=== PATIENT | female | born 1970 | race Caucasian/White ===

== ENCOUNTER 2018-06-23 11:37 | Emergency (ER) | payer SELFPAY ==
--- NOTE | 2018-06-23 12:32 | ER ---
Nurse's Notes [facility] Name: Parul Rodriguez Age: 48 yrs Sex: Female : 1970 Arrival Date: 06/23/2018 Time: 11:40 Bed 12 Private MD: None, None Diagnosis: Zoster [herpes zoster] Presentation: 06/23 11:41 Presenting complaint: Patient states: a week ago, my back was hurting and applied hj salonpas and now i noticed rash on my abdomen; it is painful; reports chills;. Transition of care: patient was not received from another setting of care. Onset of symptoms was June 23, 2018. Risk Assessment: Do you want to hurt yourself or someone else? Patient reports no desire to harm self or others. Initial Sepsis Screen: Does the patient meet any 2 criteria? No. Patient's initial sepsis screen is negative. Does the patient have a suspected source of infection? No. Patient's initial sepsis screen is negative. Care prior to arrival: None. 11:41 Method Of Arrival: Ambulatory 11:41 Acuity: YOVANI 4 hj Triage Assessment: 11:45 General: Appears in no apparent distress. uncomfortable, Behavior is calm, cooperative, hj appropriate for age. Pain: Complains of pain in abdomen. 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 - Social history:: Smoking status: Patient uses tobacco products, Patient uses alcohol, occasionally. - Ebola Screening: : Patient negative for fever greater than or equal to 101.5 degrees Fahrenheit, and additional compatible Ebola Virus Disease symptoms Patient denies exposure to infectious person Patient denies travel to an Ebola-affected area in the 21 days before illness onset. Screenin:45 Abuse screen: Denies threats or abuse. Denies injuries from another. Nutritional hj screening: No deficits noted. Tuberculosis screening: No symptoms or risk factors identified. Fall Risk None identified. Assessment: 12:39 General: Appears in no apparent distress. Behavior is calm, cooperative. Neuro: Level iw of Consciousness is awake, alert, obeys commands. Respiratory: Respiratory effort is even, unlabored. Musculoskeletal: Range of motion: intact in all extremities. Vital Signs: 11:45 BP 125 / 58; Pulse 78; Resp 18; Temp 97.5(TE); Pulse Ox 96% on R/A; Weight 90.72 kg; hj Height 5 ft. 6 in. (167.64 cm); Pain 6/10; 11:45 Body Mass Index 32.28 (90.72 kg, 167.64 cm) ED Course: 11:40 Patient arrived in ED. mr 11:41 None, None is Private Physician. mr 11:44 Triage completed. hj 11:45 Arm band placed on right wrist. hj 11:46 Patient has correct armband on for positive identification. Bed in low position. Call hj light in reach. Side rails up X 1. 12:11 Alvarez Anderson RN is Primary Nurse. hj 12:12 Timothy Schneider PA is PHCP. cp 12:12 Yousif Louise MD is Attending Physician. cp 12:39 No provider procedures requiring assistance completed. Patient did not have IV access iw during this emergency room visit. Administered Medications: No medications were administered Outcome: 12:31 Discharge ordered by MD. cp 12:39 Discharged to home ambulatory. iw 12:39 Condition: good 12:39 Discharge instructions given to patient, Instructed on discharge instructions, follow up and referral plans. medication usage, Demonstrated understanding of instructions, follow-up care, medications, Prescriptions given X 3. 12:40 Patient left the ED. iw Signatures: Vivian Walter Suze Rodriguez RN RN Alvarez Anderson RN RN Timothy Schneider PA PA cp Corrections: (The following items were deleted from the chart) 11:48 11:45 Pulse 78bpm; Resp 18bpm; Pulse Ox 96% RA; Temp 97.5F Temporal; 90.72 kg; Height 5 hj ft. 6 in.; BMI: 32.2; Pain 6/10; hj 11:49 11:45 Pulse 78bpm; Resp 18bpm; Pulse Ox 96% RA; Temp 97.5F Temporal; 90.72 kg; Height 5 hj ft. 6 in.; BMI: 32.2; Pain 6/10; hj
--- NOTE | 2018-06-23 12:32 | EDPHYS ---
Physician Documentation [facility] Name: Parul Rodriguez Age: 48 yrs Sex: Female : 1970 Arrival Date: 06/23/2018 Time: 11:40 Bed 12 Private MD: None, None ED Physician Yousif Louise HPI: 06/23 12:25 This 48 yrs old Female presents to ER via Ambulatory with complaints of Rash. cp 12:25 The patient's rash thought to be caused by an unknown cause. The rash is located on the cp back and abdomen. The rash can be described as erythematous, papular. Onset: The symptoms/episode began/occurred 1 week(s) ago, and became worse 2 day(s) ago. Associated signs and symptoms: Pertinent positives: burning sensation, Pertinent negatives: fever, itching, swelling of lips, swelling of throat, swelling of tongue. Severity of symptoms: in the emergency department the symptoms are worse. 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 - Social history:: Smoking status: Patient uses tobacco products, Patient uses alcohol, occasionally. - Ebola Screening: : Patient negative for fever greater than or equal to 101.5 degrees Fahrenheit, and additional compatible Ebola Virus Disease symptoms Patient denies exposure to infectious person Patient denies travel to an Ebola-affected area in the 21 days before illness onset. ROS: 12:26 Eyes: Negative for injury, pain, redness, and discharge. cp 12:26 Constitutional: Negative for body aches, chills, fever, poor PO intake. 12:26 Cardiovascular: Negative for chest pain, edema, palpitations. 12:26 Respiratory: Negative for cough, shortness of breath, wheezing. 12:26 Abdomen/GI: Negative for vomiting, diarrhea, constipation. 12:26 Skin: Positive for rash, of the back and abdomen. 12:26 All other systems are negative. Exam: 12:28 Head/Face: Normocephalic, atraumatic. cp 12:28 Constitutional: The patient appears in no acute distress, alert, awake, non-toxic, well developed, well nourished. 12:28 Eyes: Periorbital structures: appear normal, Conjunctiva: normal, no exudate, no injection, Sclera: no appreciated abnormality, Lids and lashes: appear normal, bilaterally. 12:28 ENT: External ear(s): are unremarkable, Nose: is normal, Mouth: Lips: moist, Oral mucosa: moist, Posterior pharynx: Airway: no evidence of obstruction, patent. 12:28 Chest/axilla: Inspection: normal. 12:28 Cardiovascular: Rate: normal. 12:28 Respiratory: the patient does not display signs of respiratory distress, Respirations: normal, no use of accessory muscles, no retractions, no splinting, no tachypnea. 12:28 Skin: rash can be described as erythematous, papular, in dermatome pattern that extends from spine to upper abdomen, on the back and abdomen. Vital Signs: 11:45 BP 125 / 58; Pulse 78; Resp 18; Temp 97.5(TE); Pulse Ox 96% on R/A; Weight 90.72 kg; hj Height 5 ft. 6 in. (167.64 cm); Pain 6/10; 11:45 Body Mass Index 32.28 (90.72 kg, 167.64 cm) hj MDM: 12:12 Patient medically screened. cp 12:15 Differential diagnosis: impetigo, varicella, allergic reaction, herpes zoster. cp 12:30 Data reviewed: vital signs, nurses notes, and as a result, I will discharge patient. cp 12:30 Counseling: I had a detailed discussion with the patient and/or guardian regarding: the cp historical points, exam findings, and any diagnostic results supporting the discharge/admit diagnosis, to return to the emergency department if symptoms worsen or persist or if there are any questions or concerns that arise at home. Administered Medications: No medications were administered Disposition: 13:22 Co-signature as Attending Physician, Yousif Louise MD I agree with the assessment and kdr plan of care. Disposition: 06/23/18 12:31 Discharged to Home. Impression: Zoster [herpes zoster]. - Condition is Stable. - Discharge Instructions: Shingles. - Prescriptions for capsaicin 0.075 % Topical cream - apply 1 application by TOPICAL route 3 times per day As needed apply to area of merry as directed as needed for pain; 60 gram. Tramadol 50 mg Oral Tablet - take 1 tablet by ORAL route every 8 hours as needed; 20 tablet. Acyclovir 800 mg Oral Tablet - take 1 tablet by ORAL route 5 times per day for 10 days; 50 tablet. - Medication Reconciliation Form, Thank You Letter, Antibiotic Education, Prescription Opioid Use form. - Follow up: Private Physician; When: 1 week; Reason: symptoms continue. - Problem is new. - Symptoms are unchanged. Signatures: Yousif Louise MD MD kdr Suze Rodriguez RN RN iw Alvarez Anderson RN RN hj Timothy Schneider PA PA cp Corrections: (The following items were deleted from the chart) 12:40 12:31 06/23/2018 12:31 Discharged to Home. Impression: Zoster [herpes zoster]. iw Condition is Stable. Forms are Medication Reconciliation Form, Thank You Letter, Antibiotic Education, Prescription Opioid Use. Follow up: Private Physician; When: 1 week; Reason: symptoms continue. Problem is new. Symptoms are unchanged. cp
== END 2018-06-23 12:40 | disposition home or self-care (01) ==
LOC: ER 11:37
DX: B02.9 Zoster without complications (principal); Z72.0 Tobacco use
CPT/HCPCS: 99282

== ENCOUNTER 2024-08-14 13:08 | Inpatient (IN) | payer OTHER ==
--- OUTSIDE RECORDS SUMMARY | 2024-08-14 13:10 | XMS REPORT | Continuity of Care Document ---
Author Name Unknown Address [address] [facility] [address] [place] [address] [facility] Address [address] [place] [address] Care Team Providers Care Partnership Manager Name Role Phone Pcp, Patient Does Not Have A Primary Care Physic suleiman Campaigns, Generic Provider Attending Clinician Unavailable Delmi Johnson MD Attending Clinician + Bird Cardenas Attending Clinician [phone] Bird BALLARD Attending Clinician Unavailable Bird BALLARD Attending Clinician Unavailable UNKNOWN, ATTENDING Attending Clinician Unavailab Bird Franco Admitting Clinician Unavailable Payers Payer Name Policy Type Policy Number Effective Date Expirati on Date Source Allergies, Adverse Reactions, Alerts Allergy Name Allergy Type Status Severity Reaction(s) Onset Date Inactive Date Treating Clinician Comments Source NO KNOWN ALLERGIE S Drug Class Active [facility] Social History Social Habit Start Date Stop Date Quantity Comments Source Sexual orientation [facility] Sex assigned at 1970 00:00:00 1970 00:00:00 [facility] Smoking Status Start Date Stop Date Source Tobacco smoking consumption unknown [facility] Medications Ordered Medication Name Filled Medication Name Start Date Stop Date Current Medication? Ordering Clinician Indication Dosage Frequency Signature (SIG) Comments Components Source predniSONE (DELTASONE) tablet 40 mg 03-05 20:15: 00 03-05 20:16 :00 No 40mg 40 mg, Oral, ONCE, 1 dose, On Wed03/05/24 at 1515, ISIDRO [facility] iopamidol (ISOVUE 370-500 mL) injection 90 mL 03-05 17:15: 00 03-05 17:30 :00 No [id number] 90mL 90 mL, Intravenou s, ONCE, 1 dose, On Wed03/05/24 at 1230, Routine [facility] aspirin chewable tablet 324 mg 03-05 16:45: 00 03-05 16:05 :00 No 324mg 324 mg, Oral, ONCE, 1 dose, On Wed03/05/24 at 1145, Routine [facility] magnesium sulfate in water 2 gram/50 mL (4 %) infusion 2 g 03-05 16:30: 00 03-05 17:14 :00 No 2g 2 g, IV Piggyback, Administer over 60 Minutes, ONCE, 1 dose, On Wed03/05/24 at 1130, Routine [facility] methocarbam oL 500 mg tablet 03-05 00:00: 00 Yes [id number] 500mg Take 1 tablet by mouth 4 (four) times daily. [facility] predniSONE 20 mg tablet 03-05 00:00: 00 Yes [id number] 1 PO BID x 4 days [facility] Vital Signs Vital Name Observation Time Observation Value Comments S ource Systolic blood pressure 2024-03-05 19:00:00 170 mm[Hg] [facility] Diastolic blood pressure 2024-03-05 19:00:00 88 mm[Hg] [facility] Heart rate 2024-03-05 19:00:00 91 /min [facility] Respiratory rate 2024-03-05 19:00:00 29 /min [facility] Oxygen saturation in Arterial blood by Pulse oximetry 2024-03-05 19:00:00 96 /min [facility] Body temperature 2024-03-05 15:38:00 36.83 Ksenia [facility] Body height 2024-03-05 15:38:00 165.1 cm [facility] Body weight 2024-03-05 15:38:00 90.719 kg [facility] BMI 2024-03-05 15:38:00 33.28 kg/m2 [facility] Procedures Procedure Date / Time Performed Performing Clinicia n Source INFLUENZA A/B RSV COVID NAAT 2024-03-05 18:37:00 Bird Ballard [facility] URINALYSIS 2024-03-05 16:52:00 Bird Ballard [facility] XR CHEST 2 VW 2024-03-05 16:27:18 Delmi Johnson [facility] TROPONIN I 2024-03-05 16:04:00 Delmi Johnson [facility] COMP. METABOLIC PANEL ([id number]) 2024-03-05 16:04:00 Delmi Johnson [facility] CBC WITH DIFF 2024-03-05 16:04:00 Delmi Johnson [facility] D-DIMER 2024-03-05 16:04:00 [facility] N-TERMINAL PRO-BNP 2024-03-05 16:04:00 Delmi Aponte [facility] HB ECG ROUTINE & RHYTHM STRIP 2024-03-05 15:43:20 Delmi Johnson [facility] Encounters Start Date/Time End Date/Time Encounter Type Admission Type Attending Clinicians Care Facility Care Department Encounter ID Source 2024-03-15 00:00:00 2024-03-15 11:16:01 Letter (Out) Campaigns, Generic Provider Campaigns, Generic Provider [facility] [id number] [facility] 2024-03-05 10:33:00 2024-03-05 15:25:00 Emergency Delmi Johnson K Paige [facility] [id number] [facility] 2024-03-05 10:33:00 2024-03-05 15:25:00 Emergency X NELLIE Bird DELACRUZ [facility] ERT [id number] [facility] 2017-11-15 00:08:03 2017-11-15 00:09:00 Emergency X UNKNOWN, ATTENDING [facility] ERT [id number] [facility] Results Test Description Test Time Test Comments Results Resul t Comments Source XR CHEST 2 VW 2024-03-05 17:30:13 Ordering Physician: DELMI JOHNSON History: SOB Technique: Chest PA and Lateral. Comparison: none Findings: The visible bony thorax is intact. The trachea is midline. The heart sizeis normal. The pulmonary vascular markings are normal. There is no evidenceof gross pulmonary consolidation, pneumothorax, or effusion. [facility]
[2024-08-14] MEDS ORDERED: ONDANSETRON 4 MG/2 ML VIAL ONE (14:56)
[2024-08-14 15:10] LABS: Absolute Basophils 0.1 K/uL (0-0.5); Absolute Eosinophils 0.1 K/uL (0-0.5); Absolute Lymphocytes (CBC) 1.8 K/uL (0.7-4.9); Absolute Monocytes 0.9 K/uL (0.1-1.3); Basophils % 1.1 % (0-1.3); Eosinophils % 0.7 % (0-4.4); Hematocrit 43.3 % (36.0-45.0); Lymphocytes % 14.1 % (15.3-44.8); MCH 31.4 pg (27.0-35.0); MCHC 34.7 g/dL (32.0-36.0); MCV 90.4 fL (80-100); MPV 9.2 fL (7.6-11.3); Monocytes % 6.8 % (3.3-12.3); Neutrophils % 77.3 % (41.7-73.7); Nucleated Red Blood Cells % 0.1 % (0-0); Platelets 285 thou/uL (152-406); RBC Red Blood Cell Count 4.79 M/uL (3.86-4.86); Red Cell Distribution Width 13.5 % (12.1-15.2)
[2024-08-14 15:22] LABS: Specific Gravity 1.005 (1.005-1.030); Sqamous Epithelial <5 /HPF (None Seen); Urine Bacteria <20 /HPF (<20); Urine Bilirubin NEGATIVE (Negative); Urine Blood Trace (Negative); Urine Clarity Extremely Turbid (Clear); Urine Color Light-Yellow (Yellow); Urine Crystals Unidentified Few /HPF (None Seen); Urine Culture Reflex Order NOT NEEDED; Urine Glucose NEGATIVE (Negative); Urine Ketones NEGATIVE (Negative); Urine Microscopic Reflex YN ORDER UMIC; Urine Nitrite NEGATIVE (Negative); Urine Protein NEGATIVE (Negative); Urine RBC <5 /HPF (None Seen); Urine Urobilinogen Normal (Normal); Urine WBC <5 /HPF (<5); Urine WBC Clump Rare /HPF (None Seen); Urine Yeast (Budding) Occasional /HPF (None Seen); Urine pH 5.5 (5.0-7.0)
[2024-08-14 15:28] LABS: Albumin 3.3 g/dL (3.4-5.0); Albumin/Globulin Ratio 0.6 (1.1-1.8); Anion Gap 6.9 mEq/L (5.0-15.0); Bilirubin Total 0.6 mg/dL (0.2-1.0); Globulin 5.1 g/dL (2.3-3.5); Potassium 3.9 mEq/L (3.5-5.1); Protein, Total 8.4 g/dL (6.4-8.2)
--- NOTE | 2024-08-14 16:32 | RAD REPORT ---
EXAMINATION: CT ABDOMEN AND PELVIS WITH CONTRAST CLINICAL INDICATION: Female, 54 years old.ABD PAIN TECHNIQUE: CT abdomen and pelvis was performed, after the administration of IV contrast, as per depar tment protocol. Axial, sagittal and coronal reconstructions were obtained. One or more of the following dose reduction techniques were used: Automated exposure control, adjustment of the mA and/o r kV according to patient size, and/or iterative reconstruction. Unless otherwise specified, incidental findings do not require dedicated imaging follow-up. [id number]. COMPARISON: No prior exam. FINDINGS: LOWER CHEST: No acute process identified.No significant pericardial effusion. Mild circumferential th ickening of the distal esophagus which could reflect esophagitis. UPPER GI: No significant abnormality. LIVER: Hepatic steatosis, but otherwise unremarkable. GALLBLADDER/BILE DUCTS: No biliary ductal dilatation.? PANCREAS: No mass, ductal dilation, or matteo-pancreatic fluid. SPLEEN: Unremarkable. ADRENALS: 2 cm left adrenal nodule. Adrenal Non-Incidental Indeterminate, CT W/C, No prior, > 1 - < 4 cm, < 130 HU: Contrast portal venous phase CT, Non-Incidental Indeterminate Adrenal Mass, No prior imaging, Cancer other than RCC/HCC, No other metastatic disease, > 1 - < 4 cm, < 130 HU: Possib le adenoma or metastasis. Recommend adrenal washout CT, chemical shift MRI or PET/CT (Consider PET/CT when morphological characteristics suggest metastasis). Reference: JACR 2017 Feb;14(8):1038-4 4, JCAT 2016 Sep-Oct;40(2):194-200 KIDNEYS AND URETERS: No hydronephrosis.No suspicious renal mass. ABDOMINAL AORTA AND OTHER VESSELS: Moderate atherosclerotic changes without aortic aneurysm. PERITONEUM: Small fluid collection containing gas along the dome of the bladder measuring 17 x 14 x 2 6 mm. Suspected sinus tract extending from the mid sigmoid to this collection. LYMPH NODES: No pathologic lymphadenopathy. ABDOMINAL WALL: Unremarkable SMALL BOWEL/COLON: Mild inflammatory changes of the sigmoid colon with evidence of diverticulosis. Co ntained perforation with fluid collection along the upper posterior portion of the bladder.No bowel disruption identified. URINARY BLADDER: Wall thickening along the left superior and posterior torre of the bladder. REPRODUCTIVE ORGANS: Uterus surgically absent. No adnexal abnormality. MUSCULOSKELETAL: Multilevel degenerative changes in the spine. No acute fracture. Trace retrolisthesi s of L4 and L5. Grade 1 anterolisthesis of L5 on S1 with bilateral pars defects. ADDITIONAL FINDINGS: None. IMPRESSION: Likely subacute contained perforation secondary to sigmoid diverticulitis. A gas and fluid containing collection is present on the upper portion of the bladder and likely still communicates with the sigmoid. Based on the size and location of the collection, this is not amenable to percutaneous drain age. No evidence to suggest fistula to the bladder though the bladder wall is locally thickened and enhancing from, presumably, inflammation.
--- NOTE | 2024-08-14 16:57 | ER ---
Nurse's Notes [facility] Name: Parul Rodriguez Age: 54 yrs Sex: Female : 1970 Arrival Date: 08/14/2024 Time: 13:08 Bed 27 Private MD: Diagnosis: Sigmoid Diverticulitis with perforation;Lower abdominal pain, unspecified Presentation: 08/14 13:35 Chief complaint: Sharp iIntermittent suprapubic pain, nausea, and pain with urination x hb 2 weeks. Coronavirus screen: At this time, the client does not indicate any symptoms associated with coronavirus-19. Ebola Screen: No symptoms or risks identified at this time. Initial Sepsis Screen: Does the patient meet any 2 criteria? No. Patient's initial sepsis screen is negative. Does the patient have a suspected source of infection? No. Patient's initial sepsis screen is negative. Risk Assessment: Do you want to hurt yourself or someone else? Patient reports no desire to harm self or others. Onset of symptoms was July 31, 2023. 13:35 Method Of Arrival: Ambulatory hb 13:35 Acuity: YOVANI 3 hb Triage Assessment: 13:39 General: Appears in no apparent distress. uncomfortable, Behavior is calm, cooperative. hb Pain: Pain currently is 5 out of 10 on a pain scale. at worst was 8 out of 10 on a pain scale. Neuro: GCS 15. Cardiovascular: Patient's skin is warm and dry. Respiratory: Respiratory effort is even, unlabored, Respiratory pattern is regular, symmetrical. Historical: - Allergies: 08/15 03:52 Dilaudid; Itching; jb4 - Home Meds: 08/14 13:37 None [Active]; hb - PMHx: 13:37 None; hb - PSHx: 13:37 Hysterectomy; Lumpectomy of breast; Appendectomy; hb - Immunization history:: Adult Immunizations up to date. - Infectious Disease History:: Denies. - Social history:: Smoking status: Patient reports the use of cigarette tobacco products. Screenin:50 [facility] ED Fall Risk Assessment (Adult) History of falling in the last 3 months, aa5 including since admission No falls in past 3 months (0 pts) Confusion or Disorientation No (0 pts) Intoxicated or Sedated No (0 pts) Impaired Gait No (0 pts) Mobility Assist Device Used No (0 pt) Altered Elimination No (0 pt) Score/Fall Risk Level 0 - 2 = Low Risk Oriented to surroundings, Maintained a safe environment, Educated pt \T\ family on fall prevention, incl call for assistance when getting out of bed, Assessed \T\ reinforced patient's understanding of fall precautions. Abuse screen: Denies threats or abuse. Nutritional screening: No deficits noted. Tuberculosis screening: No symptoms or risk factors identified. Assessment: 14:50 General: Appears uncomfortable, Behavior is calm, cooperative. Pain: Complains of pain aa5 in suprapubic area and lower abdomen Pain currently is 5 out of 10 on a pain scale. Quality of pain is described as sharp, shooting, Pain began 2-3 weeks ago Is intermittent. Neuro: Level of Consciousness is awake, alert, obeys commands, Oriented to person, place, time, situation. Cardiovascular: Patient's skin is warm and dry. Respiratory: Airway is patent Respiratory effort is even, unlabored, Respiratory pattern is regular, symmetrical. GI: Abdomen is round non-distended, Bowel sounds present X 4 quads. Abd is soft X 4 quads Abdomen is tender to palpation in suprapubic area Reports constipation, nausea, vomiting, Pt reports last BM was today but reports small amount of stool with BMs x 3 weeks ago. Patient currently denies diarrhea, intolerance of fluids, intolerance of food. : Reports pain with urination, Denies burning with urination. EENT: No signs and/or symptoms were reported regarding the EENT system. Derm: Skin is pink, warm \T\ dry. Musculoskeletal: Range of motion: intact in all extremities. 15:03 Reassessment: Patient is alert, oriented x 3, equal unlabored respirations, skin aa5 warm/dry/pink. 17:00 Reassessment: Patient is alert, oriented x 3, equal unlabored respirations, skin aa5 warm/dry/pink. 18:04 Reassessment: Patient is alert, oriented x 3, equal unlabored respirations, skin aa5 warm/dry/pink. Patient denies pain at this time. 19:00 Reassessment: Patient is alert, oriented x 3, equal unlabored respirations, skin aa5 warm/dry/pink. Pt lying down in bed watching TV. . 19:54 Reassessment: Patient appears in no apparent distress at this time. Patient and/or kj2 family updated on plan of care and expected duration. Pain level reassessed. Patient is alert, oriented x 3, equal unlabored respirations, skin warm/dry/pink. Vital Signs: 13:35 BP 117 / 78; Pulse 87; Resp 16; Temp 98.7; Pulse Ox 100% on R/A; Weight 89.81 kg; hb Height 5 ft. 5 in. ; Pain 5/10; 15:04 BP 122 / 61; Pulse 90; Resp 18 S; Temp 98.8(O); Pulse Ox 98% on R/A; aa5 16:00 BP 110 / 57; Pulse 92; Resp 18 S; Pulse Ox 99% on R/A; aa5 17:00 BP 123 / 62; Pulse 88; Resp 16 S; Temp 98.5(O); Pulse Ox 99% on R/A; aa5 18:00 BP 108 / 80; Pulse 81; Resp 16 S; Pulse Ox 98% on R/A; aa5 19:05 BP 120 / 70; Pulse 88; Resp 16 S; Temp 99.7(O); Pulse Ox 98% on R/A; aa5 13:35 Body Mass Index 32.95 (89.81 kg, 165.1 cm) hb 13:35 Pain Scale: Adult hb ED Course: 13:10 Patient arrived in ED. mr 13:24 Deepak Suazo DO is Attending Physician. ms3 13:37 Triage completed. hb 13:39 Arm band placed on. hb 14:42 Neelam Ruelas, RN is Primary Nurse. aa5 14:44 Radiology exam delayed due to lab results not completed at this time. (BUN/Creatinine) sj IV insertion attempt and/or patient not having appropriate IV at this time. 14:50 Patient has correct armband on for positive identification. Bed in low position. Call aa5 light in reach. Side rails up X 1. Pulse ox on. NIBP on. 14:55 Initial lab(s) drawn, by me, sent to lab. Urine collected: sent to lab. Inserted saline aa5 lock: 22 gauge in right antecubital area, using aseptic technique. Blood collected. Flushed with 10 mL NS. 16:00 CT Abd/Pelvis - IV Contrast Only In Process Unspecified. EDMS 16:55 Adrian Greer MD is Hospitalizing Provider. ms3 17:00 Client placed on continuous cardiac and pulse oximetry monitoring. NIBP monitoring aa5 applied. traffic monitor specialist on. Pulse ox on. NIBP on. 17:00 First set of blood cultures drawn by me. aa5 17:13 Second set of blood cultures drawn by me. aa5 17:20 Inserted saline lock: 20 gauge in left antecubital area, using aseptic technique. aa5 Flushed with 10 mL NS. 19:00 No provider procedures requiring assistance completed. Patient admitted, IV remains in aa5 place. 19:50 Report given to ANNE Herr. aa5 19:54 Report received from ANNE Mendiola. kj2 21:35 Primary Nurse role handed off by Neelam Ruelas RN rv1 21:45 Carmenza Ramirez RN is Primary Nurse. kj2 08/15 01:10 Report given to ANNE Bowman. kj2 04:37 Provided Education on: needs for admit. rg5 07:20 Primary Nurse role handed off by Carmenza Ramirez RN bd Administered Medications: 08/14 15:03 Drug: Ondansetron IVP 4 mg IVP once; over 2 minutes Route: IVP; Site: right antecubital;aa5 15:10 Follow up: Response: No adverse reaction aa5 18:04 Drug: Piperacillin-Tazobactam IVPB 3.375 grams IVPB once over 60 mins; (mix in NS 100 aa5 mL) Route: IVPB; Infused Over: 60 mins; Site: left antecubital; 19:04 Follow up: Response: No adverse reaction; IV Status: Completed infusion aa5 18:11 Drug: NS 0.9% IV 1000 ml IV at 1000 ml once; to be given as a bolus over 60 minutes aa5 Route: IV; Rate: 1000 ml; Site: left antecubital; 19:12 Follow up: IV Status: Completed infusion; IV Intake: 1000ml aa5 Medication: 19:12 VIS not applicable for this client. aa5 Intake: 19:12 IV: 1000ml; Total: 1000ml. aa5 Outcome: 16:56 Decision to Hospitalize by Provider. ms3 08/15 04:37 Admitted to ER Hold. Please see [facility] for further documentation. rg5 Condition: stable Condition: good Instructed on the need for admit, 11:25 Patient left the ED. ll1 Signatures: Dispatcher [employer] EDMS Adriane Lee bd Walter, Vivian, Reg Reg mr Loni Adler Neelam Flores, RN RN aa5 Leah Limon RN RN Cesar Velasco RN RN jb4 Pastor Etienne RN RN ll1 Deepak Suazo, DO DO ms3 David, Sugey rv1 Marcos Mondragon RN RN rg5 Carmenza Ramirez RN RN kj2 Corrections: (The following items were deleted from the chart) 08/14 13:38 13:35 Chief complaint: Lower abdominal pain, nausea, and pain with urination x 2 weeks. hb hb 13:38 13:35 BP 117 / 78; Pulse 87bpm; Resp 16bpm; Pulse Ox 100% RA; Temp 98.7F; 89.81 kg; hb Height 5 ft. 5 in.; BMI: 32.9; Pain 5/10, Adult; hb 18:11 18:04 Piperacillin-Tazobactam IVPB 3.375 grams IVPB in right antecubital over 60 mins aa5 aa5 08/15 03:53 08/14 13:37 Allergies: No Known Allergies; hb jb4
--- NOTE | 2024-08-14 16:57 | EDPHYS ---
Physician Documentation [facility] Name: Parul Rodriguez Age: 54 yrs Sex: Female : 1970 Arrival Date: 08/14/2024 Time: 13:08 Bed 27 Private MD: ED Physician Deepak Suazo HPI: 08/14 14:08 This 54 yrs old Female presents to ER via Ambulatory with complaints of Abdominal Pain, ms3 Pain With Urination, Nausea. 14:08 Beth Rodriguez, a 54-year-old female, presents to the emergency department with ms3 complaints of abdominal pain, pain with urination, and nausea. She reports experiencing these symptoms for at least two weeks. The abdominal pain is localized to the suprapubic region and is described as a stabbing pain that intermittently worsens, with intensity ranging from 5 to 8 on a scale of 10. Cranberry juice seemed to provide temporary relief. She reports pain with urination that began yesterday, with urgency and minimal urine output at times. She initially thought the symptoms were related to gas. She has experienced nausea, but not today, and denies vomiting today.. Historical: - Allergies: 08/15 03:52 Dilaudid; Itching; jb4 - Home Meds: 08/14 13:37 None [Active]; hb - PMHx: 13:37 None; hb - PSHx: 13:37 Hysterectomy; Lumpectomy of breast; Appendectomy; hb - Immunization history:: Adult Immunizations up to date. - Infectious Disease History:: Denies. - Social history:: Smoking status: Patient reports the use of cigarette tobacco products. ROS: 14:08 Constitutional: Negative for fever, and chills. Cardiovascular: Negative for chest ms3 pain, and palpitations. Respiratory: Negative for shortness of breath, cough, wheezing, and pleuritic chest pain, MS/Extremity: Negative for injury and deformity, Skin: Negative for injury, rash, and discoloration, 14:08 Abdomen/GI: Positive for abdominal pain, nausea and vomiting, Exam: 14:08 Constitutional: This is a well developed, well nourished patient who is awake, alert, ms3 and in no acute distress. Chest/axilla: Normal chest wall appearance and motion. Nontender with no deformity. Cardiovascular: Regular rate and rhythm with a normal S1 and S2. No gallops, murmurs, or rubs. Normal PMI, no JVD. No pulse deficits. Respiratory: Lungs have equal breath sounds bilaterally, clear to auscultation and percussion. No rales, rhonchi or wheezes noted. No increased work of breathing, no retractions or nasal flaring. 14:08 Abdomen/GI: Inspection: abdomen appears normal, Bowel sounds: normal, Palpation: moderate abdominal tenderness, in the suprapubic area, Vital Signs: 13:35 BP 117 / 78; Pulse 87; Resp 16; Temp 98.7; Pulse Ox 100% on R/A; Weight 89.81 kg; hb Height 5 ft. 5 in. ; Pain 5/10; 15:04 BP 122 / 61; Pulse 90; Resp 18 S; Temp 98.8(O); Pulse Ox 98% on R/A; aa5 16:00 BP 110 / 57; Pulse 92; Resp 18 S; Pulse Ox 99% on R/A; aa5 17:00 BP 123 / 62; Pulse 88; Resp 16 S; Temp 98.5(O); Pulse Ox 99% on R/A; aa5 18:00 BP 108 / 80; Pulse 81; Resp 16 S; Pulse Ox 98% on R/A; aa5 19:05 BP 120 / 70; Pulse 88; Resp 16 S; Temp 99.7(O); Pulse Ox 98% on R/A; aa5 13:35 Body Mass Index 32.95 (89.81 kg, 165.1 cm) hb 13:35 Pain Scale: Adult hb MDM: 13:37 Medical Screening Exam initiated ms3 14:08 Differential diagnosis: appendicitis, viral gastroenteritis, nonspecific abdominal ms3 pain, urinary tract infection. 16:56 Data reviewed: vital signs, nurses notes, lab test result(s), radiologic studies, CT ms3 scan, and as a result, I will admit patient. Consideration of Admission/Observation Patient was admitted/placed on observation. Management of patient was discussed with the following: Hospitalist: Dr Greer. I considered the following discharge prescriptions or medication management in the emergency department Medications were administered in the Emergency Department. See SEP. 17:07 Counseling: I had a detailed discussion with the patient and/or guardian regarding the ms3 historical points, exam findings, and any diagnostic results supporting the discharge/admit diagnosis, lab results, radiology results, the need for further work-up and treatment in the hospital. ED course: Discussed case with Hospitalist team and they accept patient. Discussed necessity for hospitalization with patient. She understands and agrees with plan. 08/14 14:11 Order name: CBC with Diff; Complete Time: 15:42 ms3 08/14 14:11 Order name: CMP; Complete Time: 15:42 ms3 08/14 14:11 Order name: Lipase; Complete Time: 15:42 ms3 08/14 14:11 Order name: Urinalysis w/ reflexes; Complete Time: 15:42 ms3 08/14 16:46 Order name: Blood Culture Adult (2) ms3 08/14 16:46 Order name: Lactate w/ 2H reflex if indic.; Complete Time: 10:51 ms3 08/14 16:46 Order name: Protime (+inr); Complete Time: 10:51 ms3 08/14 16:46 Order name: Ptt, Activated; Complete Time: 10:51 ms3 08/15 06:38 Order name: CBC with Automated Diff; Complete Time: 10:51 EDMS 08/15 06:40 Order name: Basic Metabolic Panel; Complete Time: 10:51 EDMS 08/15 06:40 Order name: Magnesium; Complete Time: 10:51 EDMS 08/14 14:11 Order name: CT Abd/Pelvis - IV Contrast Only; Complete Time: 16:43 ms3 08/14 14:11 Order name: IV Saline Lock; Complete Time: 15:03 ms3 08/14 14:11 Order name: Labs collected and sent; Complete Time: 15:03 ms3 08/14 16:46 Order name: Cardiac monitoring; Complete Time: 17:43 ms3 08/14 16:46 Order name: EKG - Nurse/Tech; Complete Time: 17:19 ms3 08/14 16:46 Order name: IV Saline Lock - Large Bore; Complete Time: 17:19 ms3 08/14 16:46 Order name: O2 Per Protocol; Complete Time: 16:52 ms3 08/14 16:46 Order name: O2 Sat Monitoring; Complete Time: 16:52 ms3 08/14 16:46 Order name: Vital Signs; Complete Time: 16:52 ms3 Administered Medications: 15:03 Drug: Ondansetron IVP 4 mg IVP once; over 2 minutes Route: IVP; Site: right antecubital;aa5 15:10 Follow up: Response: No adverse reaction aa5 18:04 Drug: Piperacillin-Tazobactam IVPB 3.375 grams IVPB once over 60 mins; (mix in NS 100 aa5 mL) Route: IVPB; Infused Over: 60 mins; Site: left antecubital; 19:04 Follow up: Response: No adverse reaction; IV Status: Completed infusion aa5 18:11 Drug: NS 0.9% IV 1000 ml IV at 1000 ml once; to be given as a bolus over 60 minutes aa5 Route: IV; Rate: 1000 ml; Site: left antecubital; 19:12 Follow up: IV Status: Completed infusion; IV Intake: 1000ml aa5 Disposition Summary: 08/14/24 16:56 Hospitalization Ordered Notes: Hospitalization Status: Inpatient Admission ms3 Provider: Adrian Greer ms3 Condition: Stable ms3 Problem: new ms3 Symptoms: are unchanged ms3 Bed/Room Type: Standard ms3 Location: Telemetry/MedSurg (Inpatient)(08/15/24 09:29) bd Room Assignment: 229(08/15/24 09:29) bd Diagnosis - Sigmoid Diverticulitis with perforation ms3 - Lower abdominal pain, unspecified ms3 Forms: - Medication Reconciliation Form ms3 - SBAR form ms3 - Leadership Thank You Letter ms3 Signatures: Dispatcher [employer] EDMS Adriane Lee Neelam Ruelas RN RN aa5 Jose R Campos, PRINTED CIRCUIT BOARD ASSEMBLY REPAIRER-C PRINTED CIRCUIT BOARD ASSEMBLY REPAIRER-Cla1 Leah Limon RN ANNE Cesar Velasco RN RN jb4 Deepak Suazo DO DO ms3 Nola Wells, RN RN kb3 Corrections: (The following items were deleted from the chart) 17:19 16:46 Accucheck ordered. ms3 aa5 17:30 16:56 Telemetry/MedSurg (Inpatient) ms3 kb3 17:30 16:56 ms3 kb3 08/15 03:53 03 13:37 Allergies: No Known Allergies; lilly reed 08/15 09:29 08/14 17:30 [facility] ER HOLD kb3 bd 08/15 09:29 02/03 17:30 ERHOLD- kb3 bd
[2024-08-14] MEDS ORDERED: PIPERACIL/TAZO 3.375 GM VIAL IV ONE (17:29)
[2024-08-14] MEDS ORDERED: NA CHLORIDE 0.9% 100 ML ONE (17:29)
--- NOTE | 2024-08-14 17:30 | P.HP ---
Certification for Inpatient Patient admitted to: Inpatient With expected LOS: >2 Midnights Patient will require the following post-hospital care: None Practitioner: I am a practitioner with admitting privileges, knowledge of patient current condition, hospital course, and medical plan of care. Services: Services provided to patient in accordance with Admission requirements found in Title 42 Section 412.3 of the Code of Federal Regulations Patient History Date of Service: 08/14/24 Reason for admission: Perforated sigmoid diverticulitis History of Present Illness: 54-year-old otherwise healthy female presents to the emergency department with 3-week history of abdominal pain. She reports the pain was very intense about 2 weeks ago and then had settled down a little bit progressively getting worse over the last 2 weeks with worse intensity today. She denies similar episodes in the past, does not take any daily medications, only surgical history is a hysterectomy. Patient was evaluated in the emergency department and her labs were significant for a white blood cell count of 13 sodium 134 GFR 82 lipase 12 UA not concerning for UTI CT abdomen pelvis with IV contrast was performed which showed likely subacute contained perforation secondary to sigmoid diverticulitis. A gas and fluid containing collection is present on the upper portion of the bladder and likely still communicates with the sigmoid. Based on the size and location of the collection this is not amenable to peritoneal drainage. No evidence to suggest fistula to the bladder though the bladder wall is locally thickened from presumably inflammation. ED physician discussed case with general surgery, patient will be admitted for further management of sigmoid diverticulitis with perforation/contained. Allergies No Known Allergies Allergy (Unverified 10/21/15 15:07) - Past Medical/Surgical History -: None -: Hysterectomy Psychosocial/ Personal History: Lives at home with family - Family History Family History: Reviewed- Non-Contributory - Social History Smoking Status: Current every day smoker Counseled patient to stop smoking for: less than 10 minutes Smoking therapy provided: Yes Alcohol use: No CD- Drugs: No Caffeine use: Yes Place of Residence: Home Review of Systems 10-point ROS is otherwise unremarkable Gastrointestinal: Nausea, Abdominal Pain Physical Examination - Physical Exam General: Alert, In no apparent distress, Oriented x3 HEENT: Atraumatic, PERRLA Neck: Supple, 2+ carotid pulse no bruit, No LAD Respiratory: Clear to auscultation bilaterally, Normal air movement Cardiovascular: Regular rate/rhythm, Normal S1 S2 Gastrointestinal: Normal bowel sounds, Tenderness (Mild to moderate suprapubic tenderness) Musculoskeletal: No tenderness Integumentary: No rashes Neurological: Normal speech, Normal strength at 5/5 x4 extr - Studies Laboratory Data (last 24 hrs) 08/14/24 08/14/24 14:53 14:53 WBC 13.00 H Hgb 15.0 Hct 43.3 Plt Count 285 Sodium 134 L Potassium 3.9 BUN 8 Creatinine 0.84 Glucose 87 Total Bilirubin 0.6 AST 19 ALT 25 Alkaline Phosphatase 96 Lipase 12 L Assessment and Plan - Plan Assessment: Contained perforated sigmoid diverticulitis Tobacco use disorder Plan: Contained perforated sigmoid diverticulitis N.p.o., IVF, IV antibiotics. Blood cultures obtained in ED General Surgery consultation-ED discussed with general surgery Discussed need for colonoscopy 6 to 8 weeks after resolution Serial abdominal exams, monitor CBC daily Tobacco use disorder Offered NicoDerm patch, declined for now we will keep on as needed DVT PPX: SCD Code status: Full Discharge Plan: Home Plan to discharge in: Greater than 2 days - Advance Directives Does patient have a Living Will: No Does patient have a Durable POA for Healthcare: No - Code Status/Comfort Care Code Status Assessed: Yes (Full code) Critical Care: No Time Spent Managing Pts Care (In Minutes): 65
[2024-08-14 18:01] LABS: PT Prothrombin Time 11.8 SECONDS (9.4-12.5); PTT, Activated Partial Thromb 33.8 SECONDS (24.3-36.9); Protime INR 1.13
[2024-08-14] MEDS ORDERED: NA CHLORIDE 0.9% 1,000 ML ONE (18:02)
[2024-08-14] MEDS: HYDROMORPHONE HCL 1 MG/ML INJ IV ONE (21:52)
[2024-08-14] MEDS ORDERED: HYDROMORPHONE HCL 1 MG/ML INJ ONE (22:22)
[2024-08-14 23:56] VITALS: BMI 32.9
[2024-08-15] MEDS ORDERED: NICOTINE 21 MG/PAT TD PRN (00:58)
[2024-08-15] MEDS ORDERED: NA CHLORIDE 0.9% 1,000 ML ONE (02:22)
[2024-08-15] MEDS ORDERED: DIPHENHYDRAMINE 50 MG/ML VIAL ONE (02:22)
[2024-08-15] MEDS ORDERED: PIPERACIL/TAZO 3.375 GM VIAL IV ONE ×2 (02:22→09:08)
[2024-08-15] MEDS ORDERED: NA CHLORIDE 0.9% 100 ML ONE ×2 (02:22→09:08)
[2024-08-15] MEDS: DIPHENHYDRAMINE 50 MG/ML VIAL IV ONE (02:45)
[2024-08-15] MEDS: PIPER TAZO 3.375 GM in NA CHLORIDE 0.9% 100 ML IV SCH (02:58)
[2024-08-15] MEDS: NA CHLORIDE 0.9% 1,000 ML IV SCH (02:58)
[2024-08-15 06:29] LABS: Absolute Basophils 0.1 K/uL (0-0.5); Absolute Eosinophils 0.1 K/uL (0-0.5); Absolute Lymphocytes (CBC) 1.6 K/uL (0.7-4.9); Absolute Monocytes 0.8 K/uL (0.1-1.3); Absolute Neutrophil 6.8 K/uL (1.8-8.0); Eosinophils % 1.5 % (0-4.4); Hematocrit 35.5 % (36.0-45.0); Hemoglobin 11.9 g/dL (12.0-15.0); MCH 30.9 pg (27.0-35.0); MCHC 33.5 g/dL (32.0-36.0); MCV 92.1 fL (80-100); MPV 8.9 fL (7.6-11.3); Monocytes % 8.8 % (3.3-12.3); Neutrophils % 71.7 % (41.7-73.7); Nucleated Red Blood Cells % 0.1 % (0-0); Platelets 250 thou/uL (152-406); RBC Red Blood Cell Count 3.86 M/uL (3.86-4.86); Red Cell Distribution Width 13.8 % (12.1-15.2)
[2024-08-15 06:33] LABS: Anion Gap 6.8 mEq/L (5.0-15.0); Magnesium 2.3 mg/dL (1.6-2.4); Potassium 3.8 mEq/L (3.5-5.1)
[2024-08-15] MEDS ORDERED: MORPHINE 2 MG/ML SYR ONE (10:33)
[2024-08-15] MEDS: MORPHINE 2 MG/ML SYR IV PRN (10:35)
--- NOTE | 2024-08-15 12:11 | EKG ---
Test Date: 2024-08-14 Test Time: 17:59:29 Research Anthropologist: ILIA MEASUREMENT RESULTS: Intervals: Rate: 93 MI: 160 QRSD: 76 QT: 346 QTc: 430 [place]: P: 24 MI: 160 QRS: 59 T: 46 INTERPRETIVE STATEMENTS: Normal sinus rhythm Normal ECG Compared to ECG 10/21/2015 12:00:58 No significant changes Electronically Signed On 08-15-24 12:10:23 CYTOLOGY LABORATORY MANAGER by Nir Art
--- NOTE | 2024-08-15 19:01 | P.PN ---
Date of Service: 08/15/24 Subjective Awake, Conversing well Dr. Dugan to evaluate Remain NPO ROS 10 point ROS as noted above, otherwise negative Physical Exam General: Alert and Oriented x3, NAD HEENT: Atraumatic, PERRLA Neck: Supple, 2+ carotid pulse no bruit, No LAD Respiratory: Clear to auscultation bilaterally, Normal air movement, on RA Cardiovascular: RRR, Normal S1 S2 Gastrointestinal: Normal bowel sounds, Tenderness (Mild to moderate suprapubic tenderness) Musculoskeletal: No tenderness Integumentary: No rashes Neurological: Normal speech, Normal strength at 5/5 x4 extr Vitals Reviewed Assessment: Contained perforated sigmoid diverticulitis Tobacco use disorder Plan: Contained perforated sigmoid diverticulitis -Continue N.p.o., IVF, IV antibiotics. -Blood cultures NGTD -General Surgery consultation-ED discussed with general surgery -Discussed need for colonoscopy 6 to 8 weeks after resolution -Serial abdominal exams, monitor CBC daily Tobacco use disorder -Offered NicoDerm patch, declined for now we will keep on as needed DVT PPX: SCD Code status: Full Discharge Plan: Home Plan to discharge in: Greater than 2 days
[2024-08-16 04:35] LABS: Absolute Basophils 0.1 K/uL (0-0.5); Absolute Eosinophils 0.1 K/uL (0-0.5); Absolute Lymphocytes (CBC) 1.6 K/uL (0.7-4.9); Absolute Monocytes 0.6 K/uL (0.1-1.3); Absolute Neutrophil 6.9 K/uL (1.8-8.0); Basophils % 1.2 % (0-1.3); Eosinophils % 1.5 % (0-4.4); Hematocrit 34.8 % (36.0-45.0); Hemoglobin 12.3 g/dL (12.0-15.0); Lymphocytes % 17.2 % (15.3-44.8); MCH 31.6 pg (27.0-35.0); MCHC 35.2 g/dL (32.0-36.0); MCV 89.9 fL (80-100); MPV 8.9 fL (7.6-11.3); Monocytes % 6.9 % (3.3-12.3); Neutrophils % 73.2 % (41.7-73.7); Platelets 238 thou/uL (152-406); RBC Red Blood Cell Count 3.88 M/uL (3.86-4.86); Red Cell Distribution Width 13.9 % (12.1-15.2)
[2024-08-16 05:02] LABS: Anion Gap 7.6 mEq/L (5.0-15.0); Magnesium 2.1 mg/dL (1.6-2.4); Potassium 3.6 mEq/L (3.5-5.1)
[2024-08-16] MEDS: ONDANSETRON 4 MG/2 ML VIAL IV PRN (20:57)
--- NOTE | 2024-08-16 21:57 | P.PN ---
Date of Service: 08/16/24 Subjective Feeling well advancing to CLD ROS 10 point ROS as noted above, otherwise negative Physical Exam General: AAO x3, NAD HEENT: Atraumatic, PERRLA Neck: Supple, 2+ carotid pulse no bruit, No LAD Respiratory: Clear BBS, Normal air movement, on RA Cardiovascular: Regular rate and rhythm, S1-S2, no edema Gastrointestinal: Normal bowel sounds, Tenderness (Mild to moderate suprapubic tenderness) Musculoskeletal: No tenderness Integumentary: No rashes Neurological: Normal speech, Normal strength at 5/5 x4 extr Vitals Reviewed Assessment: Contained perforated sigmoid diverticulitis Tobacco use disorder Plan: Contained perforated sigmoid diverticulitis -CLD, IVF, IV antibiotics. -Blood cultures NGTD -General Surgery consultation-ED discussed with general surgery -Discussed need for colonoscopy 6 to 8 weeks after resolution -Serial abdominal exams, monitor CBC daily Tobacco use disorder -Offered NicoDerm patch, declined for now we will keep on as needed DVT PPX: SCD Code status: Full Discharge Plan: Home Plan to discharge in: Greater than 2 days
[2024-08-17 04:53] LABS: Absolute Basophils 0.1 K/uL (0-0.5); Absolute Eosinophils 0.2 K/uL (0-0.5); Absolute Lymphocytes (CBC) 1.7 K/uL (0.7-4.9); Absolute Monocytes 0.8 K/uL (0.1-1.3); Absolute Neutrophil 5.5 K/uL (1.8-8.0); Eosinophils % 2.3 % (0-4.4); Hematocrit 35.9 % (36.0-45.0); Hemoglobin 12.3 g/dL (12.0-15.0); Lymphocytes % 20.7 % (15.3-44.8); MCH 30.8 pg (27.0-35.0); MCHC 34.2 g/dL (32.0-36.0); Monocytes % 9.5 % (3.3-12.3); Neutrophils % 66.5 % (41.7-73.7); Nucleated Red Blood Cells % 0.1 % (0-0); Platelets 251 thou/uL (152-406); RBC Red Blood Cell Count 3.99 M/uL (3.86-4.86); Red Cell Distribution Width 13.6 % (12.1-15.2)
[2024-08-17 05:20] LABS: Anion Gap 6.6 mEq/L (5.0-15.0); Potassium 3.6 mEq/L (3.5-5.1)
--- NOTE | 2024-08-17 13:37 | RAD REPORT ---
EXAMINATION: CT ABDOMEN AND PELVIS WITH CONTRAST CLINICAL INDICATION: Abdominal pain TECHNIQUE: CT abdomen and pelvis was performed, after the administration of 100 cc Isovue-300.. Sagit iona and coronal reconstructions were obtained. One or more of the following dose reduction techniques were used: Automated exposure control, adjustment of the mA and kV according to patient si ze, and iterative reconstruction. Unless otherwise specified, incidental findings do not require dedicated imaging follow-up. [id number]. Oral contrast was not given which limits evaluation of bowel and appendix. COMPARISON: .August 14, 2024 FINDINGS: Liver, spleen, pancreas, right adrenal and kidneys appear unremarkable 2 cm left adrenal nodule. Adrenal Non-Incidental Indeterminate, CT W/C, No prior, > 1 - < 4 cm, < 130 HU: Contrast portal venous phase CT, Non-Incidental Indeterminate Adrenal Mass, No prior imaging, Cancer other than RCC/HCC, No other metastatic disease, > 1 - < 4 cm, < 130 HU: Possible adenoma or metastasis. Recommend adrenal washout CT, chemical shift MRI or PET/CT (Consider PET/CT when morphological characteristics suggest metastasis). Reference: JACR 2017 Feb;14(8):1038- 44, JCAT 2016 Sep-Oct;40(2):194-200 Normal appendix. Perforated sigmoid diverticulitis again demonstrated. Extraluminal air is contained within the ascend ing colon. A 2 cm fluid collection inferior to the sigmoid and adjacent to the bladder represents an early abscess. Sigmoid wall is thickened. : IMPRESSION: Perforated sigmoid diverticulitis. 2 cm early abscess lies inferior to the sigmoid and adjacent to the bladder. It is not amenable to a percutaneous drainage.
--- NOTE | 2024-08-17 14:38 | P.PN ---
Date of Service: 08/17/24 Subjective Reports feeling better, ambulating independently CT with contrast "Perforated sigmoid diverticulitis. 2 cm early abscess lies inferior to the sigmoid and adjacent to the bladder. It is not amenable to a percutaneous drainage." Continue CLD ROS 10 point ROS as noted above, otherwise negative Physical Exam General: Awake and oriented x3, NAD HEENT: Atraumatic, PERRLA Neck: Supple, 2+ carotid pulse no bruit, No LAD Respiratory: Clear BBS, symmetrical chest wall movement, on RA Cardiovascular: RRR, S1-S2 present, no edema Gastrointestinal: Normal bowel sounds, Tenderness (Mild suprapubic tenderness) Musculoskeletal: No tenderness Integumentary: No rashes Neurological: Normal speech, Normal strength at 5/5 x4 extr Vitals Reviewed Assessment: Contained perforated sigmoid diverticulitis Tobacco use disorder Plan: Contained perforated sigmoid diverticulitis -continue CLD, IVF, IV antibiotics. -Blood cultures NGTD -General Surgery consultation-ED discussed with general surgery -Discussed need for colonoscopy 6 to 8 weeks after resolution -Serial abdominal exams, monitor CBC daily -CT abdomen pelvis Tobacco use disorder -Offered NicoDerm patch, declined for now we will keep on as needed DVT PPX: SCD Code status: Full Discharge Plan: Home Plan to discharge in: Greater than 2 days
--- NOTE | 2024-08-17 16:22 | P.CNS ---
Date of Consult: 08/15/24 PC: I was asked to see this 54-year-old male regards to her left lower quadrant abdominal pain. HPC: Patient has not had a bowel movement apparently prior to her presentation to the ER for probably 2 to 3 weeks. Noted she was having severe pelvic discomfort. Thought she had a UTI. Came to the emergency room for diagnosis and treatment. PSHx: Previous hysterectomy PMHx: Negative Social Hx: Allergic to hydromorphone Sys R: No cough, wheeze, shortness of breath. No chest pain or palpitations. Denies any urinary complaints O/E: Awake alert vital signs are stable. Patient is afebrile HEENT: Within normal limits Chest: Air entry equal bilaterally Abd: Mild tenderness in the left lower quadrant, no guarding or rebound [place]: Intact Data: White cell count has come down, CT scan still shows some residual 2 cm abscess. Impression: Patient has a ruptured diverticulitis with a contained small abscess. Plan: This patient, and initial presentation was very distressed, with a lot of pain tenderness and guarding in the left lower quadrant. Her CT scan at that time revealed a 2 cm abscess. She was admitted for and started on antibiotics. She did have some diminution of her symptoms, as well as improvement clinically. I did not physically see her until today, as I have been late at myself but was able to follow her via computer, CT scan, following lab results and talking to her hospitalist as well as the nurse practitioner. Today however if she is sitting up in her bed, much more relaxed, still has some mild discomfort but tolerating a full liquid diet. I will start her on a soft diet today, change her pain medicine over to oral medication. If she is stable, would probably discharge her in the a.m. She is welcome to follow-up with me in my office. She also needs to find her primary care physician, practitioner that she can use with her insurance. I have explained this to her in detail, she is quite content with his course of treatment. She I did emphasize as well that she does require a colonoscopy in 8 to 10 weeks.
[2024-08-17] MEDS: PIPER TAZO 3.375 GM in NA CHLORIDE 0.9% 100 ML IV SCH (17:28)
[2024-08-18 00:38] VITALS: O2SAT 97
[2024-08-18 06:05] LABS: Anion Gap 8.6 mEq/L (5.0-15.0); Magnesium 2.1 mg/dL (1.6-2.4); Potassium 3.6 mEq/L (3.5-5.1)
[2024-08-18 06:15] LABS: Absolute Eosinophils 0.2 K/uL (0-0.5); Absolute Lymphocytes (CBC) 1.7 K/uL (0.7-4.9); Absolute Monocytes 0.7 K/uL (0.1-1.3); Absolute Neutrophil 5.4 K/uL (1.8-8.0); Basophils % 0.5 % (0-1.3); Eosinophils % 2.7 % (0-4.4); Hematocrit 36.6 % (36.0-45.0); Hemoglobin 12.3 g/dL (12.0-15.0); Lymphocytes % 20.8 % (15.3-44.8); MCH 30.7 pg (27.0-35.0); MCHC 33.6 g/dL (32.0-36.0); MCV 91.4 fL (80-100); MPV 9.1 fL (7.6-11.3); Monocytes % 9.1 % (3.3-12.3); Neutrophils % 66.9 % (41.7-73.7); Platelets 271 thou/uL (152-406); Red Cell Distribution Width 13.6 % (12.1-15.2)
[2024-08-18] MEDS: POTASSIUM CL SA 10 MEQ TAB PO ONE (07:56)
[2024-08-18 09:19] VITALS: BP 133/74; TEMP 98
--- NOTE | 2024-08-18 09:37 | P.DS ---
Admission Date: 08/14/24 Discharge Date: 08/18/24 Disposition: ROUTINE DISCHARGE Discharge Condition: GOOD Reason for Admission: Perforated sigmoid diverticulitis Brief History of Present Illness: Diagnosis Contained perforated sigmoid diverticulitis Tobacco use disorder HPI 08/15/24 54-year-old otherwise healthy female presents to the emergency department with 3-week history of abdominal pain. She reports the pain was very intense about 2 weeks ago and then had settled down a little bit progressively getting worse over the last 2 weeks with worse intensity today. She denies similar episodes in the past, does not take any daily medications, only surgical history is a hysterectomy. Patient was evaluated in the emergency department and her labs were significant for a white blood cell count of 13 sodium 134 GFR 82 lipase 12 UA not concerning for UTI CT abdomen pelvis with IV contrast was performed which showed likely subacute contained perforation secondary to sigmoid diverticulitis. A gas and fluid containing collection is present on the upper portion of the bladder and likely still communicates with the sigmoid. Based on the size and location of the collection this is not amenable to peritoneal drainage. No evidence to suggest fistula to the bladder though the bladder wall is locally thickened from presumably inflammation. ED physician discussed case with general surgery, patient will be admitted for further management of sigmoid diverticulitis with perforation/contained. Hospital Course: Patient was admitted and treated for the following diagnosis Contained perforated sigmoid diverticulitis -Tolerated and improved with CLD, IVF, IV antibiotics. -Blood cultures NGTD -Dr. Dugan consulted and cleared for discharge as she is tolerating PO diet -Discussed need for colonoscopy 6 to 8 weeks after resolution -CT abdomen pelvis reports "2 cm early abscess lies inferior to the sigmoid and adjacent to the bladder. It is not amenable to a percutaneous drainage." Tobacco use disorder -Offered but declined NicoDerm patch On 08/18/24, Parul was seen on morning rounds and deemed hemodynamically stable. Dr. Dugan has evaluated and cleared her for discharge. Augmentin and norco were prescribed. Physical Exam General: AAOx3, No acute distress Neck: Supple, 2+ carotid pulse no bruit, No LAD Respiratory: nonlabored breating, remains on RA Cardiovascular: RRR, S1-S2 present, no edema Gastrointestinal: abdominal Tenderness improved, active bowel sounds Musculoskeletal: No tenderness noted Integumentary: No rashes Neurological: Normal speech, Normal strength at 5/5 x4 extr Vital Signs/Physical Exam: Temp Pulse Resp BP Pulse Ox 98.0 F 77 16 133/74 96 08/18/24 08:00 08/18/24 08:00 08/18/24 08:00 08/18/24 08:00 08/18/24 08:00 Laboratory Data at Discharge: WBC 8.10 thou/uL (4.3-10.9) 08/18/24 05:00 Hgb 12.3 g/dL (12.0-15.0) 08/18/24 05:00 Hct 36.6 % (36.0-45.0) 08/18/24 05:00 Plt Count 271 thou/uL (152-406) 08/18/24 05:00 PT 11.8 SECONDS (9.4-12.5) 08/14/24 17:13 INR 1.13 08/14/24 17:13 APTT 33.8 SECONDS (24.3-36.9) 08/14/24 17:13 Sodium 138 mEq/L (136-145) 08/18/24 05:00 Potassium 3.6 mEq/L (3.5-5.1) 08/18/24 05:00 BUN 3 mg/dL (7-18) L 08/18/24 05:00 Creatinine 0.65 mg/dL (0.55-1.02) 08/18/24 05:00 Glucose 98 mg/dL (74-106) 08/18/24 05:00 Magnesium 2.1 mg/dL (1.6-2.4) 08/18/24 05:00 Total Bilirubin 0.6 mg/dL (0.2-1.0) 08/14/24 14:53 AST 19 U/L (15-37) 08/14/24 14:53 ALT 25 U/L (13-56) 08/14/24 14:53 Alkaline Phosphatase 96 U/L (45-117) 08/14/24 14:53 Lipase 12 U/L (13-75) L 08/14/24 14:53 Home Medications: Amox/Clavulanate [Augmentin 875-125 Tab] 875 mg PO BID 5 Days #10 tab 08/18/24 Hydrocodone 7.5/APAP 325 [[place] 7.5/325 mg] 1 tab PO Q6H PRN #20 tab 08/18/24 traMADol HCL [Ultram*] 50 mg PO Q6H PRN 5 Days #15 tab 08/18/24 New Medications: Amox/Clavulanate [Augmentin 875-125 Tab] 875 mg PO BID 5 Days #10 tab Hydrocodone 7.5/APAP 325 [[place] 7.5/325 mg] 1 tab PO Q6H PRN #20 tab PRN Reason: Pain traMADol HCL [Ultram*] 50 mg PO Q6H PRN 5 Days #15 tab PRN Reason: Pain Physician Discharge Instructions: 1. Please call and schedule a follow-up appointment with your PCP in 3-5 days - Please follow-up with your PCP for medication refills/adjustments 2. Please call and schedule a follow-up appointment with Dr. Dugan in 3-5 days 3. Continue soft GI diet 4. No activity restrictions 5. Return to the ED if symptoms worsen New medications Augmentin 875 mg twice daily x 5 days Activity: No lifting more than 10 lbs Followup: Cesar Dugan MD [ACTIVE - CAN ADMIT] - 1 Week NONE,NONE [Primary Care Provider] -
[2024-08-18] MEDS: HYDROCODONE/APAP 7.5/325 MG TAB PO PRN (10:47)
== END 2024-08-18 11:28 | disposition home or self-care (01) | DRG 392 ==
LOC: ER 13:08 → ERHOLD 17:23 → 2ND 08-15 10:40
PROVIDERS: ADMIT Hospitalist; ATTEND Internal Medicine
DX: K57.20 Diverticulitis of large intestine with perforation and abscess without bleeding (principal); F17.210 Nicotine dependence, cigarettes, uncomplicated; Z88.5 Allergy status to narcotic agent; Z90.49 Acquired absence of other specified parts of digestive tract; Z90.710 Acquired absence of both cervix and uterus
CPT/HCPCS: 36415; 74177; 80048; 80053; 81001; 83605; 83690; 83735; 85025; 85610; 85730; 87040; 93005; 96365; 96375; 99285; J1171; J1200; J2270; J2405; J2543; J7030; Q9967

== ENCOUNTER 2024-08-19 13:04 | Emergency (ER) | payer OTHER ==
--- OUTSIDE RECORDS SUMMARY | 2024-08-19 13:06 | XMS REPORT | Continuity of Care Document ---
Author Name Unknown Address [address] [facility] [address] [place] [address] [facility] thconnect Address [address] [facility] [address] [place] [address] Care Team Providers Care Manager Employee Benefits Name Role Phone Pcp, Patient Does Not Have A Primary Care Physic suleiman Campaigns, Generic Provider Attending Clinician Unavailable Delmi Johnson MD Attending Clinician + Bird Cardenas Attending Clinician [phone] Bird BALLARD Attending Clinician Unavailable Bird BALLARD Attending Clinician Unavailable UNKNOWN, ATTENDING Attending Clinician Unavailab Bird Franco Admitting Clinician Unavailable Payers Payer Name Policy Type Policy Number Effective Date Expirati on Date Source Allergies, Adverse Reactions, Alerts Allergy Name Allergy Type Status Severity Reaction(s) Onset Date Inactive Date Treating Clinician Comments Source NO KNOWN ALLERGIE S Drug Class Active [facility] Social History Social Habit Start Date Stop Date Quantity Comments Source Sexual orientation [facility] Sex assigned at 1970 00:00:00 1970 00:00:00 [facility] Smoking Status Start Date Stop Date Source Tobacco smoking consumption unknown [facility] Medications Ordered Medication Name Filled Medication Name Start Date Stop Date Current Medication? Ordering Clinician Indication Dosage Frequency Signature (SIG) Comments Components Source predniSONE (DELTASONE) tablet 40 mg 03-05 20:15: 00 03-05 20:16 :00 No 40mg 40 mg, Oral, ONCE, 1 dose, On Wed03/05/24 at 1515, ISIDRO [facility] iopamidol (ISOVUE 370-500 mL) injection 90 mL 03-05 17:15: 00 03-05 17:30 :00 No [id number] 90mL 90 mL, Intravenou s, ONCE, 1 dose, On Wed03/05/24 at 1230, Routine [facility] aspirin chewable tablet 324 mg 03-05 16:45: 00 03-05 16:05 :00 No 324mg 324 mg, Oral, ONCE, 1 dose, On Wed03/05/24 at 1145, Routine [facility] magnesium sulfate in water 2 gram/50 mL (4 %) infusion 2 g 03-05 16:30: 00 03-05 17:14 :00 No 2g 2 g, IV Piggyback, Administer over 60 Minutes, ONCE, 1 dose, On Wed03/05/24 at 1130, Routine [facility] methocarbam oL 500 mg tablet 03-05 00:00: 00 Yes [id number] 500mg Take 1 tablet by mouth 4 (four) times daily. [facility] predniSONE 20 mg tablet 03-05 00:00: 00 Yes [id number] 1 PO BID x 4 days [facility] Vital Signs Vital Name Observation Time Observation Value Comments S ource Systolic blood pressure 2024-03-05 19:00:00 170 mm[Hg] [facility] Diastolic blood pressure 2024-03-05 19:00:00 88 mm[Hg] [facility] Heart rate 2024-03-05 19:00:00 91 /min [facility] Respiratory rate 2024-03-05 19:00:00 29 /min [facility] Oxygen saturation in Arterial blood by Pulse oximetry 2024-03-05 19:00:00 96 /min [facility] Body temperature 2024-03-05 15:38:00 36.83 Ksenia [facility] Body height 2024-03-05 15:38:00 165.1 cm [facility] Body weight 2024-03-05 15:38:00 90.719 kg [facility] BMI 2024-03-05 15:38:00 33.28 kg/m2 [facility] Procedures Procedure Date / Time Performed Performing Clinicia n Source INFLUENZA A/B RSV COVID NAAT 2024-03-05 18:37:00 Bird Ballard [facility] URINALYSIS 2024-03-05 16:52:00 Bird Ballard [facility] XR CHEST 2 VW 2024-03-05 16:27:18 Delmi Johnson [facility] TROPONIN I 2024-03-05 16:04:00 Delmi Johnosn [facility] COMP. METABOLIC PANEL (33560) 2024-03-05 16:04:00 Delmi Johnson [facility] CBC WITH DIFF 2024-03-05 16:04:00 Delmi Johnson [facility] D-DIMER 2024-03-05 16:04:00 [facility] N-TERMINAL PRO-BNP 2024-03-05 16:04:00 Delmi Aponte [facility] HB ECG ROUTINE & RHYTHM STRIP 2024-03-05 15:43:20 Delmi Johnson [facility] Encounters Start Date/Time End Date/Time Encounter Type Admission Type Attending Clinicians Care Facility Care Department Encounter ID Source 2024-03-15 00:00:00 2024-03-15 11:16:01 Letter (Out) Campaigns, Generic Provider Campaigns, Generic Provider [facility] [id number] [facility] 2024-03-05 10:33:00 2024-03-05 15:25:00 Emergency Delmi Johnson K Paige [facility] [id number] [facility] 2024-03-05 10:33:00 2024-03-05 15:25:00 Emergency X Bird BALLARD NELLIE, Bird [facility] [id number] [facility] 2017-11-15 00:08:03 2017-11-15 00:09:00 Emergency X UNKNOWN, ATTENDING [facility] [id number] [facility] Results Test Description Test Time Test Comments Results Resul t Comments Source XR CHEST 2 VW 2024-03-05 17:30:13 Ordering Physician: DELMI JOHNSON History: SOB Technique: Chest PA and Lateral. Comparison: none Findings: The visible bony thorax is intact. The trachea is midline. The heart sizeis normal. The pulmonary vascular markings are normal. There is no evidenceof gross pulmonary consolidation, pneumothorax, or effusion. [facility]
[2024-08-19 13:40] LABS: Absolute Basophils 0.1 K/uL (0-0.5); Absolute Eosinophils 0.2 K/uL (0-0.5); Absolute Lymphocytes (CBC) 1.5 K/uL (0.7-4.9); Absolute Monocytes 0.7 K/uL (0.1-1.3); Absolute Neutrophil 7.2 K/uL (1.8-8.0); Basophils % 0.8 % (0-1.3); Eosinophils % 1.7 % (0-4.4); Hematocrit 38.5 % (36.0-45.0); Hemoglobin 13.2 g/dL (12.0-15.0); MCH 30.7 pg (27.0-35.0); MCHC 34.2 g/dL (32.0-36.0); MCV 89.8 fL (80-100); MPV 8.9 fL (7.6-11.3); Monocytes % 6.8 % (3.3-12.3); Neutrophils % 74.7 % (41.7-73.7); Platelets 301 thou/uL (152-406); RBC Red Blood Cell Count 4.29 M/uL (3.86-4.86); Red Cell Distribution Width 13.7 % (12.1-15.2)
--- NOTE | 2024-08-19 13:40 | RAD REPORT ---
EXAM: Chest Single View HISTORY: COUGH COMPARISON: None. FINDINGS: LUNGS/PLEURA: The lungs are clear. No pleural effusions or pneumothorax. No pulmonary edema. MEDIASTINUM: The mediastinal silhouette is within normal limits. CARDIAC: The cardiac silhouette is within normal limits. UPPER ABDOMEN: No significant abnormality. BONES: No acute abnormality. LINES/TUBES/OTHER: N/A IMPRESSION: No evidence of acute cardiopulmonary disease.
[2024-08-19 13:46] LABS: PT Prothrombin Time 12.7 SECONDS (9.4-12.5); Protime INR 1.21
[2024-08-19 13:59] LABS: BUN Blood Urea Nitrogen 3 mg/dL (7-18); Bicarbonate 22 mEq/L (21-32); Glomerular Filtration Rate 107 ml/min (=/>90); Glucose Level 79 mg/dL (74-106); NT PRO-BNP 154 pg/mL (<125); Sodium Level 137 mEq/L (136-145)
[2024-08-19 14:00] LABS: Troponin High Sensitivity < 3.0 pg/mL (<58.9)
--- NOTE | 2024-08-19 14:16 | EDPHYS ---
Physician Documentation [facility] Name: Parul Rodriguez Age: 54 yrs Sex: Female : 1970 Arrival Date: 08/19/2024 Time: 13:04 Bed 14 Private MD: ED Physician Brando Byrd HPI: 08/19 13:47 This 54 yrs old Female presents to ER via EMS with complaints of Near Syncope.ec2 13:47 Patient arrives today for evaluation of lightheadedness. States that she felt ec2 presyncopal, lowered self to the ground. No falls injuries or trauma, denies chest pain or shortness of breath. Reports poor p.o. intake the past several days. Recent admission for diverticulitis, denies any significant abdominal pain.. Historical: - Allergies: 13:15 Dilaudid; Itching; ph - PSHx: 13:15 Appendectomy; hysterectomy; Lumpectomy of breast; ph - Immunization history:: Adult Immunizations unknown. - Infectious Disease History:: Denies. - Social history:: Smoking status: Patient reports the use of cigarette tobacco products, smokes one-half pack cigarettes per day. ROS: 13:47 Constitutional: as per hpi ec2 Exam: 13:47 Abdomen/GI: ec2 13:47 Constitutional: GEN: NAD Head: atraumatic Eyes: EOMI Ears: External ears are normal. CV: regular rate LUNGS: no respiratory distress ABD: non-distended SKIN: no evidence of rashes MSK: no evidence of trauma Vital Signs: 13:12 BP 119 / 63; Pulse 87; Resp 18; Temp 97.8; Pulse Ox 94% on R/A; Weight 88.45 kg; Height ph 5 ft. 5 in. ; 14:39 BP 149 / 84; Pulse 87; Resp 18; Temp 97.4; Pulse Ox 95% on R/A; ph 13:12 Body Mass Index 32.45 (88.45 kg, 165.1 cm) ph MDM: 13:15 Medical Screening Exam initiated ec2 13:35 ED course: EKG independently reviewed and interpreted by me, shows normal sinus rhythm, ec2 rate of 85, no acute ST segment elevations, intervals are nonactionable.. 13:48 Data reviewed: vital signs, nurses notes. ED course: Patient arrives today for ec2 lightheadedness. Examination is unrevealing. Will obtain basic lab work. EKG as above. Differential includes processes such as arrhythmia, electrolyte disturbances, anemia.. 14:15 ED course: Labs are nonactionable. On reassessment patient is well-appearing, no ec2 recurrence of symptoms. Will discharge home have the patient follow-up with PCP. Return precautions given.. 08/19 13:10 Order name: Basic Metabolic Panel; Complete Time: 14:15 ec2 08/19 13:10 Order name: CBC with Diff; Complete Time: 14:15 ec2 08/19 13:10 Order name: NT PRO-BNP; Complete Time: 14:15 ec2 08/19 13:10 Order name: PT-INR; Complete Time: 14:15 ec2 08/19 13:10 Order name: Troponin HS; Complete Time: 14:15 ec2 08/19 13:10 Order name: XRAY Chest (1 view); Complete Time: 14:15 ec2 08/19 13:10 Order name: EKG; Complete Time: 13:11 ec2 08/19 13:10 Order name: Cardiac monitoring; Complete Time: 14:38 ec2 08/19 13:10 Order name: EKG - Nurse/Tech; Complete Time: 14:38 ec2 08/19 13:10 Order name: IV Saline Lock; Complete Time: 14:38 ec2 08/19 13:10 Order name: Labs collected and sent; Complete Time: 14:38 ec2 08/19 13:10 Order name: O2 Per Protocol; Complete Time: 14:38 ec2 08/19 13:10 Order name: O2 Sat Monitoring; Complete Time: 14:38 ec2 Administered Medications: No medications were administered Disposition Summary: 08/19/24 14:15 Discharge Ordered Notes: Location: Home ec2 Condition: Stable ec2 Diagnosis - Syncope Near ec2 Followup: ec2 - With: Private Physician - When: As needed - Reason: Recheck today's complaints Discharge Instructions: - Discharge Summary Sheet ec2 - Near-Syncope ec2 Forms: - Medication Reconciliation Form ec2 - Antibiotic Education ec2 - Prescription Opioid Use ec2 - Patient Portal Instructions ec2 - Leadership Thank You Letter ec2 Signatures: Dispatcher MedHoSilvana Castro RN RN ph rBando Byrd MD MD ec2 Corrections: (The following items were deleted from the chart) 13: 13:10 BASIC METABOLIC PANEL+C.LAB.BRZ ordered. EDMS EDMS 13: 13:10 CBC+H.LAB.BRZ ordered. EDMS EDMS 13: 13:10 PROBNP+C.LAB.BRZ ordered. EDMS EDMS 13: 13:10 PROTIME (+INR)+COAG.LAB.BRZ ordered. EDMS EDMS 13: 13:11 Troponin High Sensitivity+C.LAB.BRZ ordered. EDMS EDMS
--- NOTE | 2024-08-19 14:16 | ER ---
Nurse's Notes [facility] Name: Parul Rodriguez Age: 54 yrs Sex: Female : 1970 Arrival Date: 08/19/2024 Time: 13:04 Bed 14 Private MD: Diagnosis: Syncope Near Presentation: 08/19 13:12 Chief complaint: EMS states: Was d/c from hospital yesterday after being admitted x 5 ph days for diverticulitis, was getting out of the car at the pharmacy today and began feeling dizzy, lowered herself to the ground, states, " I don't think I was completely out but I don't know." VSS, BGL 110, administered Zofran for nausea. Coronavirus screen: Vaccine status: Patient reports being unvaccinated. Ebola Screen: No symptoms or risks identified at this time. Initial Sepsis Screen: Does the patient meet any 2 criteria? No. Patient's initial sepsis screen is negative. Does the patient have a suspected source of infection? No. Patient's initial sepsis screen is negative. Risk Assessment: Do you want to hurt yourself or someone else? Patient reports no desire to harm self or others. Onset of symptoms was August 19, 2024. 13:12 Method Of Arrival: EMS: [facility] 13:12 Acuity: YOVANI 3 ph Triage Assessment: 13:15 General: Appears in no apparent distress. comfortable, well groomed, Behavior is calm, ph cooperative, appropriate for age. Pain: Denies pain. Neuro: Level of Consciousness is awake, alert, obeys commands, Oriented to person, place, time, situation, Reports a syncopal episode. Cardiovascular: Reports nausea, syncope, Denies chest pain, Capillary refill < 3 seconds in bilateral fingers Patient's skin is warm and dry. Respiratory: Airway is patent Respiratory effort is even, unlabored. Derm: Skin is pink, warm \\T\\ dry. Historical: - Allergies: 13:15 Dilaudid; Itching; ph - PSHx: 13:15 Appendectomy; hysterectomy; Lumpectomy of breast; ph - Immunization history:: Adult Immunizations unknown. - Infectious Disease History:: Denies. - Social history:: Smoking status: Patient reports the use of cigarette tobacco products, smokes one-half pack cigarettes per day. Screenin:16 [facility] Fall Risk Assessment (Adult) History of falling in the last 3 months, ph including since admission No falls in past 3 months (0 pts) Confusion or Disorientation No (0 pts) Intoxicated or Sedated No (0 pts) Impaired Gait No (0 pts) Mobility Assist Device Used No (0 pt) Altered Elimination No (0 pt) Score/Fall Risk Level 0 - 2 = Low Risk Oriented to surroundings, Maintained a safe environment, Hourly rounding (assess needs \\T\\ fall precautionary measures) done. Abuse screen: Denies threats or abuse. Denies injuries from another. Nutritional screening: No deficits noted. Tuberculosis screening: No symptoms or risk factors identified. Assessment: 13:30 General: SEE TRIAGE ASSESSMENT. ph 14:39 Reassessment: Patient appears in no apparent distress at this time. Patient and/or ph family updated on plan of care and expected duration. Pain level reassessed. Patient is alert, oriented x 3, equal unlabored respirations, skin warm/dry/pink. Vital Signs: 13:12 BP 119 / 63; Pulse 87; Resp 18; Temp 97.8; Pulse Ox 94% on R/A; Weight 88.45 kg; Height ph 5 ft. 5 in. ; 14:39 BP 149 / 84; Pulse 87; Resp 18; Temp 97.4; Pulse Ox 95% on R/A; ph 13:12 Body Mass Index 32.45 (88.45 kg, 165.1 cm) ph ED Course: 13:07 Patient arrived in ED. ph 13:10 Brando Byrd MD is Attending Physician. ec2 13:12 Silvana Santana, RN is Primary Nurse. ph 13:15 Triage completed. ph 13:16 Arm band placed on Patient placed in an exam room, on a stretcher, on cardiac cath rn, ph on pulse oximetry. 13:16 Patient has correct armband on for positive identification. Bed in low position. Call ph light in reach. Side rails up X 1. Pulse ox on. NIBP on. Door closed. Noise minimized. Warm blanket given. 13:30 Initial lab(s) drawn, by me, sent to lab. EKG done, by ED staff, reviewed by Brando Byrd MD. Maintain EMS IV. Dressing intact. Good blood return noted. Site clean \\T\\ dry. Gauge \\T\\ site: 20 LFA. Flushed with 10 mL NS. 13:34 XRAY Chest (1 view) In Process Unspecified. EDMS 14:37 No provider procedures requiring assistance completed. IV discontinued, intact, ph bleeding controlled, No redness/swelling at site. Pressure dressing applied. Administered Medications: No medications were administered Medication: 13:16 VIS not applicable for this client. ph Outcome: 14:15 Discharge ordered by . ec2 14:39 Discharged to home ambulatory, ph 14:39 Condition: good 14:39 Discharge instructions given to patient, Instructed on discharge instructions, follow up and referral plans. Demonstrated understanding of instructions, follow-up care, 14:39 Patient left the ED. ph Signatures: Dispatcher [employer] Silvana Laguna RN RN ph Brando Byrd MD MD ec2
[2024-08-19 14:54] VITALS: BP 149/84; TEMP 97.4; O2SAT 95
--- NOTE | 2024-08-22 12:51 | EKG ---
Test Date: 2024-08-19 Test Time: 13:24:59 Map Colorer: PH MEASUREMENT RESULTS: Intervals: Rate: 85 ME: 164 QRSD: 78 QT: 364 QTc: 433 Warren: P: 66 ME: 164 QRS: 56 T: 59 INTERPRETIVE STATEMENTS: Normal sinus rhythm Nonspecific T wave abnormality Abnormal ECG Compared to ECG 08/14/2024 17:59:29 T-wave abnormality now present Electronically Signed On 08-22-24 12:44:54 BRICK STACKER by Nir Art
== END 2024-08-19 14:39 | disposition home or self-care (01) ==
LOC: ER 13:04
DX: R55 Syncope and collapse (principal); F17.210 Nicotine dependence, cigarettes, uncomplicated
CPT/HCPCS: 36415; 71045; 80048; 83880; 84484; 85025; 85610; 93005; 99284

== ENCOUNTER 2024-09-10 18:00 | Emergency (ER) | payer OTHER, SELFPAY ==
--- OUTSIDE RECORDS SUMMARY | 2024-09-10 18:03 | XMS REPORT | Continuity of Care Document ---
Author Name Unknown Address [address] [place] [address] [facility] thconnect Address [address] [place] [address] Care Team Providers Care Appliance Service Technician Name Role Phone Pcp, Patient Does Not Have A Primary Care Physic suleiman Campaigns, Generic Provider Attending Clinician Unavailable Jak Johnson MD Attending Clinician + Bird Cardenas Attending Clinician [phone] Bird BALLARD Attending Clinician Unavailable Bird BALLARD Attending Clinician Unavailable UNKNOWN, ATTENDING Attending Clinician Unavailab Bird Franco Admitting Clinician Unavailable Payers Payer Name Policy Type Policy Number Effective Date Expirati on Date Source Allergies, Adverse Reactions, Alerts Allergy Name Allergy Type Status Severity Reaction(s) Onset Date Inactive Date Treating Clinician Comments Source NO KNOWN ALLERGIE S Drug Class Active [facility] Social History Social Habit Start Date Stop Date Quantity Comments Source Sexual orientation [facility] Sex assigned at 1970 00:00:00 1970 00:00:00 [facility] Smoking Status Start Date Stop Date Source Tobacco smoking consumption unknown [facility] Medications Ordered Medication Name Filled Medication Name Start Date Stop Date Current Medication? Ordering Clinician Indication Dosage Frequency Signature (SIG) Comments Components Source predniSONE (DELTASONE) tablet 40 mg 03-05 20:15: 00 03-05 20:16 :00 No 40mg 40 mg, Oral, ONCE, 1 dose, On Wed03/05/24 at 1515, ISIDRO [facility] iopamidol (ISOVUE 370-500 mL) injection 90 mL 03-05 17:15: 00 03-05 17:30 :00 No [id number] 90mL 90 mL, Intravenou s, ONCE, 1 dose, On Wed03/05/24 at 1230, Routine [facility] aspirin chewable tablet 324 mg 03-05 16:45: 00 03-05 16:05 :00 No 324mg 324 mg, Oral, ONCE, 1 dose, On Wed03/05/24 at 1145, Routine [facility] magnesium sulfate in water 2 gram/50 mL (4 %) infusion 2 g 03-05 16:30: 00 03-05 17:14 :00 No 2g 2 g, IV Piggyback, Administer over 60 Minutes, ONCE, 1 dose, On Wed03/05/24 at 1130, Routine [facility] methocarbam oL 500 mg tablet 03-05 00:00: 00 Yes [id number] 500mg Take 1 tablet by mouth 4 (four) times daily. [facility] predniSONE 20 mg tablet 03-05 00:00: 00 Yes [id number] 1 PO BID x 4 days [facility] Vital Signs Vital Name Observation Time Observation Value Comments S ource Systolic blood pressure 2024-03-05 19:00:00 170 mm[Hg] [facility] Diastolic blood pressure 2024-03-05 19:00:00 88 mm[Hg] [facility] Heart rate 2024-03-05 19:00:00 91 /min [facility] Respiratory rate 2024-03-05 19:00:00 29 /min [facility] Oxygen saturation in Arterial blood by Pulse oximetry 2024-03-05 19:00:00 96 /min [facility] Body temperature 2024-03-05 15:38:00 36.83 Ksenia [facility] Body height 2024-03-05 15:38:00 165.1 cm [facility] Body weight 2024-03-05 15:38:00 90.719 kg [facility] BMI 2024-03-05 15:38:00 33.28 kg/m2 [facility] Procedures Procedure Date / Time Performed Performing Clinicia n Source INFLUENZA A/B RSV COVID NAAT 2024-03-05 18:37:00 Bird Ballard [facility] URINALYSIS 2024-03-05 16:52:00 Bird Ballard [facility] XR CHEST 2 VW 2024-03-05 16:27:18 Jak Johnson [facility] TROPONIN I 2024-03-05 16:04:00 Jak Johnson [facility] COMP. METABOLIC PANEL ([id number]) 2024-03-05 16:04:00 Jak Johnson [facility] CBC WITH DIFF 2024-03-05 16:04:00 Jak Johnson [facility] D-DIMER 2024-03-05 16:04:00 [facility] N-TERMINAL PRO-BNP 2024-03-05 16:04:00 Jak Aponte [facility] HB ECG ROUTINE & RHYTHM STRIP 2024-03-05 15:43:20 Jak Johnson [facility] Encounters Start Date/Time End Date/Time Encounter Type Admission Type Attending Clinicians Care Facility Care Department Encounter ID Source 2024-03-15 00:00:00 2024-03-15 11:16:01 Letter (Out) Campaigns, Generic Provider Campaigns, Generic Provider [facility] [id number] [facility] 2024-03-05 10:33:00 2024-03-05 15:25:00 Emergency Jak Johnson K Paige [facility] [id number] [facility] 2024-03-05 10:33:00 2024-03-05 15:25:00 Emergency X Bird BALLARD K [facility] ERT [id number] [facility] 2017-11-15 00:08:03 2017-11-15 00:09:00 Emergency X UNKNOWN, ATTENDING [facility] ERT [id number] [facility] Results Test Description Test Time Test Comments Results Resul t Comments Source XR CHEST 2 VW 2024-03-05 17:30:13 Ordering Physician: JAK JOHNSON History: SOB Technique: Chest PA and Lateral. Comparison: none Findings: The visible bony thorax is intact. The trachea is midline. The heart sizeis normal. The pulmonary vascular markings are normal. There is no evidenceof gross pulmonary consolidation, pneumothorax, or effusion. [facility] Notes Date/Time Note Provider Source 2024-03-05 15:24:26 Discharged home ambulatory. 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 [facility] 2024-03-05 10:37:40 Patient to ED ambulatory complaining of shortness of breath and back pain started last night. Patient appears to be anxious. IET Rishabh Ornelas RN [facility]
[2024-09-10 18:48] LABS: Absolute Basophils 0.1 K/uL (0-0.5); Absolute Eosinophils 0.2 K/uL (0-0.5); Absolute Lymphocytes (CBC) 2.3 K/uL (0.7-4.9); Absolute Monocytes 0.6 K/uL (0.1-1.3); Absolute Neutrophil 7.7 K/uL (1.8-8.0); Basophils % 0.8 % (0-1.3); Eosinophils % 1.5 % (0-4.4); Hematocrit 41.2 % (36.0-45.0); Hemoglobin 14.3 g/dL (12.0-15.0); Lymphocytes % 20.8 % (15.3-44.8); MCHC 34.6 g/dL (32.0-36.0); MCV 89.4 fL (80-100); Monocytes % 5.9 % (3.3-12.3); Nucleated Red Blood Cells % 0.1 % (0-0); Platelets 214 thou/uL (152-406); RBC Red Blood Cell Count 4.61 M/uL (3.86-4.86); Red Cell Distribution Width 14.5 % (12.1-15.2)
[2024-09-10 19:10] LABS: Albumin 3.3 g/dL (3.4-5.0); Albumin/Globulin Ratio 0.8 (1.1-1.8); Anion Gap 7.6 mEq/L (5.0-15.0); Bilirubin Total 0.5 mg/dL (0.2-1.0); Globulin 4.3 g/dL (2.3-3.5); Potassium 3.6 mEq/L (3.5-5.1); Protein, Total 7.6 g/dL (6.4-8.2)
[2024-09-10] MEDS ORDERED: MORPHINE 4 MG/ML SYR ONE (19:14)
[2024-09-10] MEDS ORDERED: ONDANSETRON 4 MG/2 ML VIAL ONE (19:14)
[2024-09-10] MEDS ORDERED: NA CHLORIDE 0.9% 1,000 ML ONE (19:14)
--- NOTE | 2024-09-10 19:39 | RAD REPORT ---
EXAMINATION: CT ABDOMEN AND PELVIS WITH CONTRAST CLINICAL INDICATION: ABD PAIN TECHNIQUE: CT abdomen and pelvis was performed, after the administration of IV contrast, [facility]. Axial, sagittal and coronal reconstructions were obtained. One or more of the following dose reduction techniques were used: Automated exposure control, adjustment of the mA and k V according to patient size, and iterative reconstruction. Unless otherwise specified, incidental findings do not require dedicated imaging follow-up. COMPARISON: 08/17/2024 FINDINGS: LOWER CHEST: The visualized lung bases are clear. LIVER: Mild fatty liver is present. No focal lesion or biliary dilatation is seen. Grossly unremark able gallbladder. SPLEEN: Normal size. No focal lesion. PANCREAS: No mass, ductal dilation, or matteo-pancreatic fluid. ADRENALS: Normal; no mass. KIDNEYS: Normal size and contour. No hydronephrosis. GASTROINTESTINAL TRACT: No evidence of free air, significant intra-abdominal free fluid, bowel obstru ction or abscess. Moderate colonic inflammation left lower quadrant where there is wall thickening and numerous diverticula. Acute diverticulitis is favored. No complication. APPENDIX: Normal appendix. LYMPH NODES: No lymphadenopathy. MUSCULOSKELETAL: Mild anterolisthesis L5 on S1 bilateral spondylolysis. ADDITIONAL FINDINGS: None. IMPRESSION: The findings are favored to represent acute diverticulitis of the sigmoid colon. No complication evid ent. After appropriate treatment, colonoscopy would be recommended to exclude the possibility of underlying mass.
[2024-09-10 20:57] LABS: Specific Gravity > 1.030 (1.005-1.030); Sqamous Epithelial <5 /HPF (None Seen); Urine Bacteria <20 /HPF (<20); Urine Bilirubin NEGATIVE (Negative); Urine Blood 1+ (Negative); Urine Clarity Clear (Clear); Urine Color Light-Yellow (Yellow); Urine Culture Reflex Order REFLEXED; Urine Glucose NEGATIVE (Negative); Urine Ketones NEGATIVE (Negative); Urine Microscopic Reflex YN ORDER UMIC; Urine Nitrite NEGATIVE (Negative); Urine Protein NEGATIVE (Negative); Urine Urobilinogen Normal (Normal); Urine WBC 20-50 /HPF (<5); Urine WBC Clump Rare /HPF (None Seen)
--- NOTE | 2024-09-10 22:28 | ER ---
Nurse's Notes [facility] Name: Parul Rodriguez Age: 54 yrs Sex: Female : 1970 Arrival Date: 09/10/2024 Time: 18:00 Bed 7 Private MD: Diagnosis: Diverticulitis of intestine, part unspecified, without perforation or abscess without bleeding Presentation: 09/10 18:12 Chief complaint: Patient states: was admitted for perforated diverticulitis a month ago iw , she is still having lower abd pain and vaginal discharge that has a brown color and foul smell. Coronavirus screen: At this time, the client does not indicate any symptoms associated with coronavirus-19. Ebola Screen: No symptoms or risks identified at this time. Initial Sepsis Screen: Does the patient meet any 2 criteria? No. Patient's initial sepsis screen is negative. Does the patient have a suspected source of infection? No. Patient's initial sepsis screen is negative. Risk Assessment: Do you want to hurt yourself or someone else? Patient reports no desire to harm self or others. Onset of symptoms was September 08, 2024. 18:12 Method Of Arrival: Ambulatory iw 18:12 Acuity: YOVANI 3 iw Historical: - Allergies: 18:15 Dilaudid; Itching; iw - PSHx: 18:15 Appendectomy; hysterectomy; Lumpectomy of breast; iw - Immunization history:: Adult Immunizations not up to date. - Infectious Disease History:: Denies. - Social history:: Smoking status: Patient reports the use of cigarette tobacco products, smokes one pack cigarettes per day. Assessment: 19:40 General: Appears in no apparent distress. comfortable, Behavior is calm, cooperative, jb4 appropriate for age. Pain: Complains of pain in abdomen Pain does not radiate. Neuro: Level of Consciousness is awake, alert, obeys commands, Oriented to person, place, time, situation. Cardiovascular: Patient's skin is warm and dry. Respiratory: Airway is patent Respiratory effort is even, unlabored, Respiratory pattern is regular, symmetrical. GI: Abdomen is flat. Vital Signs: 18:12 BP 124 / 61; Pulse 104; Resp 18; Temp 97.7; Pulse Ox 100% on R/A; Weight 86.18 kg; iw Height 5 ft. 0 in. ; Pain 8/10; 20:16 BP 130 / 85; Pulse 94; Resp 16; Pulse Ox 98% on R/A; jb4 18:12 Body Mass Index 37.11 (86.18 kg, 152.4 cm) iw 18:12 Pain Scale: Adult iw ED Course: 18:02 Patient arrived in ED. im 18:02 Angie Ordaz FNP-C [facility]. kb 18:02 Nehemiah Taylor MD is Attending Physician. kb 18:15 Triage completed. iw 18:15 Arm band placed on. iw 19:32 CT Abd/Pelvis - IV Contrast Only In Process Unspecified. EDMS 21:37 Cesar Velasco, RN is Primary Nurse. jb4 Administered Medications: 19:26 Drug: Ondansetron IVP 4 mg IVP once; over 2 minutes Route: IVP; Site: right antecubital;jb4 19:26 Drug: morphine IVP or IV 4 mg IVP once over 4 mins Route: IVP; Infused Over: 4 mins; jb4 Site: right antecubital; 19:26 Drug: NS 0.9% IV 1000 ml IV at 1 bolus Per protocol; to be given as a bolus over 60 jb4 minutes Route: IV; Rate: 1 bolus; Site: right antecubital; Outcome: 22:28 Discharge ordered by MD. kb 22:39 Patient left the ED. jb4 Signatures: Dispatcher [employer] EDLA Angie Ordaz FNP-C FNP-Ckb Williams, Irene, RN RN Cesar Velasco RN RN jb4 Kassandra Head im
--- NOTE | 2024-09-10 22:28 | EDPHYS ---
Physician Documentation [facility] Name: Parul Rodriguez Age: 54 yrs Sex: Female : 1970 Arrival Date: 09/10/2024 Time: 18:00 Bed 7 Private MD: ED Physician Nehemiah Taylor HPI: 09/10 18:04 This 54 yrs old Female presents to ER via Unassigned with complaints of Abdominal Pain. kb 18:04 Pt is a 54 year old female who presents for abdominal pain. States she was admitted 2 kb weeks ago for similar symptoms. States she was put on antibiotics and sent home after a week. Also reports vaginal discharge for 2 weeks and believes it is feces. States the pain has never gone away completely, but it has been worse over the last 2 days. "I feel like I have an infection." States she was seen by Dr Dugan in the hospital. Unknown fever. Reports nausea. Denies vomiting, diarrhea. Historical: - Allergies: 18:15 Dilaudid; Itching; iw - PSHx: 18:15 Appendectomy; hysterectomy; Lumpectomy of breast; iw - Immunization history:: Adult Immunizations not up to date. - Infectious Disease History:: Denies. - Social history:: Smoking status: Patient reports the use of cigarette tobacco products, smokes one pack cigarettes per day. ROS: 18:04 Constitutional: As per HPI kb Exam: 18:08 Constitutional: This is a well developed, well nourished patient who is awake, alert, kb and in no acute distress. Head/Face: Normocephalic, atraumatic. ENT: Moist Mucous membranes Cardiovascular: Regular rate Respiratory: Respirations even and unlabored. No increased work of breathing. Talking in full sentences Skin: Warm, dry with normal turgor. Normal color. MS/ Extremity: Pulses equal, no cyanosis. Neurovascular intact. Full, normal range of motion. Neuro: Awake and alert, GCS 15, oriented to person, place, time, and situation. 18:09 Abdomen/GI: Inspection: abdomen appears normal, Bowel sounds: normal, Palpation: soft, kb in all quadrants, moderate abdominal tenderness, in the suprapubic area and left lower quadrant, 22:26 : Pelvic Exam: External exam: is normal, discharge, yellow, kb Vital Signs: 18:12 BP 124 / 61; Pulse 104; Resp 18; Temp 97.7; Pulse Ox 100% on R/A; Weight 86.18 kg; iw Height 5 ft. 0 in. ; Pain 8/10; 20:16 BP 130 / 85; Pulse 94; Resp 16; Pulse Ox 98% on R/A; jb4 18:12 Body Mass Index 37.11 (86.18 kg, 152.4 cm) iw 18:12 Pain Scale: Adult iw MDM: 18:02 Medical Screening Exam initiated kb 22:26 Differential diagnosis: diverticulitis, non-specific abd pain, fistula. Data reviewed: kb vital signs, nurses notes. Consideration of Admission/Observation Escalation of care including admission/observation considered. admission considered but pt is afebrile, nontoxic in appearance. tolerating po intake. Pt prefers to go home so she doesn't have to miss more work. Counseling: I had a detailed discussion with the patient and/or guardian regarding the historical points, exam findings, and any diagnostic results supporting the discharge/admit diagnosis, lab results, radiology results, the need for outpatient follow up, a family practitioner, to return to the emergency department if symptoms worsen or persist or if there are any questions or concerns that arise at home. 09/10 18:09 Order name: CBC with Diff; Complete Time: 18:51 kb 09/10 18:09 Order name: CMP; Complete Time: 19:22 kb 09/10 18:09 Order name: Lipase; Complete Time: 19:22 kb 09/10 18:09 Order name: Urinalysis w/ reflexes; Complete Time: 20:59 kb 09/10 21:06 Order name: Urine Culture EDPA 09/10 21:36 Order name: Wet Prep 09/10 18:09 Order name: CT Abd/Pelvis - IV Contrast Only; Complete Time: 19:40 kb 09/10 18:09 Order name: IV Saline Lock; Complete Time: 19:10 kb 09/10 18:09 Order name: Labs collected and sent; Complete Time: 19:10 kb 09/10 21:36 Order name: Pelvic Exam Setup; Complete Time: 22:39 kb Administered Medications: 19:26 Drug: Ondansetron IVP 4 mg IVP once; over 2 minutes Route: IVP; Site: right antecubital;jb4 19:26 Drug: morphine IVP or IV 4 mg IVP once over 4 mins Route: IVP; Infused Over: 4 mins; jb4 Site: right antecubital; 19:26 Drug: NS 0.9% IV 1000 ml IV at 1 bolus Per protocol; to be given as a bolus over 60 jb4 minutes Route: IV; Rate: 1 bolus; Site: right antecubital; Disposition: 19:19 Co-signature as Attending Physician, Nehemiah Taylor MD I reviewed the patient's care rt provided by the Advanced Practice Provider and agree with the diagnosis and treatment plan. Disposition Summary: 09/10/24 22:28 Discharge Ordered Notes: Location: Home kb Condition: Stable kb Diagnosis - Diverticulitis of intestine, part unspecified, without perforation or abscess kb without bleeding Followup: kb - With: Private Physician - When: 2 - 3 days - Reason: Recheck today's complaints, Continuance of care, Re-evaluation by your physician Followup: kb - With: Emergency Department - When: As needed - Reason: Worsening of condition Discharge Instructions: - Discharge Summary Sheet kb - Diverticulitis, [id number] kb Forms: - Medication Reconciliation Form kb - Antibiotic Education kb - Prescription Opioid Use kb - Patient Portal Instructions kb - Leadership Thank You Letter kb Prescriptions: - Flagyl 500 mg Oral Tablet - take 1 tablet ORAL route every 8 hours for 10 days; 30 tablet; Refills: 0, kb Product Selection Permitted - Cipro 500 mg Oral tablet - take 1 tablet ORAL route every 12 hours for 10 days; 20 tablet; Refills: 0, kb Product Selection Permitted - Diclofenac Sodium 75 mg Oral tablet, delayed release (enteric coated) - take 1 tablet ORAL route 2 times per day As needed; 30 tablet; Refills: 0, kb Product Selection Permitted Signatures: Dispatcher [employer] EDMS Angie Ordaz, CANDLEMAKING LABORER-C CANDLEMAKING LABORER-Ckb Suze Rodriguez, RN RN Cesar Lu RN RN jb4 Nehemiah Taylor MD MD rt Corrections: (The following items were deleted from the chart) 18:09 18:09 CBC+H.LAB.BRZ ordered. EDMS EDMS 18:09 18:09 COMPREHENSIVE METABOLIC PANEL+C.LAB.BRZ ordered. EDMS EDMS 18:09 18:09 LIPASE+C.LAB.BRZ ordered. EDMS EDMS 18:09 18:09 Urinalysis+U.LAB.BRZ ordered. EDMS EDMS 18: 18:09 Abdomen Pelvis W Con+CT.RAD.BRZ ordered. EDMS EDMS
[2024-09-10 23:13] VITALS: TEMP 97.7
[2024-09-10 23:14] VITALS: BP 130/85; O2SAT 98
== END 2024-09-10 22:39 | disposition home or self-care (01) ==
LOC: ER 18:00
DX: K57.32 Diverticulitis of large intestine without perforation or abscess without bleeding (principal)
CPT/HCPCS: 36415; 74177; 80053; 81001; 83690; 85025; 87086; 87088; 87210; 96374; 96375; 99283; J2405; J7030; Q9967

== ENCOUNTER 2025-02-28 09:56 | Emergency (ER) | payer OTHER ==
[2025-02-28] MEDS ORDERED: ONDANSETRON 4 MG/2 ML VIAL ONE (11:11)
[2025-02-28] MEDS ORDERED: FENTANYL CITR 100 MCG/2 ML ONE (11:11)
[2025-02-28] MEDS ORDERED: NA CHLORIDE 0.9% 1,000 ML ONE (11:12)
[2025-02-28 11:40] LABS: Absolute Lymphocytes (CBC) 1.7 K/uL (0.7-4.9); Hematocrit 40.3 % (36.0-45.0); Hemoglobin 13.6 g/dL (12.0-15.0); MCH 31.4 pg (27.0-35.0); MCHC 33.7 g/dL (32.0-36.0); MCV 93.3 fL (80-100); MPV 8.6 fL (7.6-11.3); Nucleated RBC Absolute Count 0.0 (0-0); Nucleated Red Blood Cells % 0.0 % (0-0); RBC Red Blood Cell Count 4.31 M/uL (3.86-4.86); White Blood Count 6.60 thou/uL (4.3-10.9)
[2025-02-28 11:46] LABS: Sqamous Epithelial <5 /HPF (None Seen); Urine Crystals Unidentified Few /HPF (None Seen); Urine Culture Reflex Order NOT NEEDED; Urine Microscopic Reflex YN ORDER UMIC; Urine WBC Clump Rare /HPF (None Seen); Urine Yeast (Budding) Trace /HPF (None Seen)
[2025-02-28 11:58] LABS: ALT/SGPT 25.0 U/L (13-56); AST/SGOT 22.0 U/L (15-37); Albumin 3.3 g/dL (3.4-5.0); Albumin/Globulin Ratio 0.9 (1.1-1.8); Alkaline Phosphatase 108.0 U/L (45-117); Anion Gap 7.5 mEq/L (5.0-15.0); BUN Blood Urea Nitrogen 17.0 mg/dL (7-18); Globulin 3.6 g/dL (2.3-3.5); Glucose Level 111.0 mg/dL (74-106); Lipase 16.0 U/L (13-75); Potassium 4.5 mEq/L (3.5-5.1)
--- NOTE | 2025-02-28 12:51 | RAD REPORT ---
EXAMINATION: CT Abdomen Pelvis W Contrast CLINICAL INDICATION: Female, 54 years old. ABD PAIN TECHNIQUE: CT abdomen and pelvis was performed, after the administration of IV contrast, [facility]. Axial, sagittal and coronal reconstructions were obtained. One or more of the following dose reduction techniques were used: Automated exposure control, adjustment of the mA and k V according to patient size, and iterative reconstruction. Unless otherwise specified, incidental findings do not require dedicated imaging follow-up. COMPARISON: 01/17/2025 FINDINGS: LOWER CHEST: The visualized lung bases are clear. LIVER: Normal in size and contour. No focal lesion. BILIARY SYSTEM: No suspicious abnormalities. SPLEEN: Normal size. No focal lesion. PANCREAS: No mass, ductal dilation, or matteo-pancreatic fluid. ADRENALS: Normal; no mass. KIDNEYS: Normal size and contour. No hydronephrosis. URINARY BLADDER: As below. No significant bladder wall thickening or air within the bladder. GASTROINTESTINAL TRACT: Improving sequelae of sigmoid diverticulitis, with minimal residual wall prom inence and adjacent fat stranding. Gas opacified small tract with minimal adjacent inflammatory changes extends from the sigmoid adventitia caudally and medially towards the posterior bladder dome, although without significant bladder wall thickening, or soft tissue thickening at the level of the vaginal cuff. No evidence of free air, significant intra-abdominal free fluid, bowel obstruction or abscess. APPENDIX: Normal appendix. LYMPH NODES: No lymphadenopathy. MUSCULOSKELETAL: No acute or suspicious osseous abnormality. Stable mild degenerative changes with gr joseph 1 spondylolisthesis at L5-S1. ADDITIONAL FINDINGS: None. IMPRESSION: Continued improvement of sequelae of sigmoid diverticulitis. Small bowel gas opacified tract extendin g towards the posterior bladder dome and vaginal cuff left of midline, could indicate a small sinus or fistula formation.
--- NOTE | 2025-02-28 13:17 | EDPHYS ---
Physician Documentation [facility] Name: Parul Rodriguez Age: 54 yrs Sex: Female : 1970 Arrival Date: 02/28/2025 Time: 09:56 Bed 13 Private MD: Timothy Long HPI: 02/28 10:54 This 54 yrs old Female presents to ER via Ambulatory with complaints of Abdominal Pain, sb4 Pelvic Pain. 10:54 Patient reports lower abdominal pain and nausea for a few days now. 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 States that she is currently on an unknown antibiotic for a UTI. States that she feels very weak as well. Historical: - Allergies: 10:05 Dilaudid; Itching; ll1 - PMHx: 10:05 colo/vaginal fistula; Diverticulitis; ll1 - PSHx: 10:05 hysterectomy; Lumpectomy of breast; Tonsillectomy; ll1 - Immunization history:: Adult Immunizations up to date. - Infectious Disease History:: Denies. - Social history:: Smoking status: Patient reports the use of cigarette tobacco products, smokes one-half pack cigarettes per day. ROS: 10:54 Constitutional: Negative for fever, chills, and weight loss, sb4 10:54 Abdomen/GI: Positive for nausea, 10:54 : Positive for pelvic pain, 10:54 All other systems are negative, Exam: 10:54 Head/Face: Normocephalic, atraumatic. Eyes: Extra-ocular motions intact. Periorbital sb4 areas with no swelling, redness, or edema. ENT: Mucous membranes moist. Cardiovascular: Regular rate and rhythm with a normal S1 and S2. Respiratory: No increased work of breathing, no retractions or nasal flaring. Abdomen/GI: Soft, non-tender, no distension. Skin: Warm, dry with normal turgor. Normal color with no rashes, no lesions, and no evidence of cellulitis. 10:54 Constitutional: The patient appears alert, awake, uncomfortable, Vital Signs: 10:20 BP 130 / 69; Pulse 86; Resp 17; Temp 97.6; Pulse Ox 95% ; Weight 89.81 kg; Height 5 ft. ll1 5 in. ; Pain 7/10; 11:30 BP 136 / 93; Pulse 82; Resp 17; Pulse Ox 92% ; cm10 12:30 BP 132 / 90; Pulse 80; Resp 18; Temp 98; Pulse Ox 100% on R/A; kj2 13:57 BP 124 / 84; Pulse 82; Resp 18; Pulse Ox 100% on R/A; kj2 10:20 Body Mass Index 32.95 (89.81 kg, 165.1 cm) ll1 10:20 Pain Scale: Adult ll1 MDM: 10:15 Medical Screening Exam initiated sb4 10:56 Differential diagnosis: diverticulitis, non-specific abd pain, Pyelonephritis, sb4 Ureterolithiasis, urinary tract infection. 13:22 Data reviewed: vital signs, nurses notes, lab test result(s), radiologic studies, and sb4 as a result, I will discharge patient. Independent interpretation of the following test(s) in the Emergency Department CT Scan: My interpretation is My interpretation of the CT abdomen pelvis images is air noted within the lower abdomen/bladder, consistent with known fistula. Counseling: I had a detailed discussion with the patient and/or guardian regarding the historical points, exam findings, and any diagnostic results supporting the discharge/admit diagnosis, lab results, radiology results, the need for outpatient follow up, a general surgeon, to return to the emergency department if symptoms worsen or persist or if there are any questions or concerns that arise at home. Special discussion: Based on the patient's Hx, exam, and Dx evaluation, there is no indication for emergent surgery or inpatient Tx. It is understood by the patient/guardian that if the Sx's persist or worsen they need to return immediately for re-evaluation. 02/28 10:52 Order name: CBC with Diff; Complete Time: 11:47 sb4 02/28 10:52 Order name: CMP; Complete Time: 11:59 sb4 02/28 10:52 Order name: Lipase; Complete Time: 11:59 sb4 02/28 10:52 Order name: UA Rfx Joseph Cult if indicated; Complete Time: 11:47 sb4 02/28 10:52 Order name: CT Abd/Pelvis - IV Contrast Only; Complete Time: 12:52 sb4 02/28 10:52 Order name: IV Saline Lock; Complete Time: 11:37 sb4 02/28 10:52 Order name: Labs collected and sent; Complete Time: 11:37 sb4 02/28 12:53 Order name: PO challenge sb4 Administered Medications: 11:37 Drug: Ondansetron IVP 4 mg IVP once; over 2 minutes Route: IVP; Site: right upper arm; cm10 13:58 Follow up: Response: No adverse reaction kj2 11:37 Drug: NS 0.9% IV 1000 ml IV at 1 bolus Per protocol; to be given as a bolus over 60 cm10 minutes Route: IV; Rate: 1 bolus; Site: right upper arm; 13:58 Follow up: IV Status: Completed infusion; IV Intake: 1000ml kj2 11:37 Drug: fentaNYL (PF) IVP 50 mcg IVP once Route: IVP; Site: right upper arm; cm10 13:58 Follow up: Response: No adverse reaction kj2 Disposition: 14:43 Co-signature as Attending Physician, Timothy Wood MD I agree with the assessment and jami plan of care. Disposition Summary: 02/28/25 13:17 Discharge Ordered Notes: Location: Home sb4 Problem: new sb4 Symptoms: have improved sb4 Condition: Stable sb4 Diagnosis - Lower abdominal pain, unspecified sb4 - Presence of colovesicula fistula sb4 Followup: sb4 - With: Private Physician - When: As needed - Reason: Recheck today's complaints, Re-evaluation by your physician Discharge Instructions: - Discharge Summary Sheet sb4 - Abdominal Pain, Adult, [id number] sb4 Forms: - Patient Portal Instructions sb4 - Leadership Thank You Letter sb4 Prescriptions: - Tramadol 50 mg Oral Tablet - take 1 tablet ORAL route every 8 hours as needed; 12 tablet; Refills: 0, sb4 Product Selection Permitted - ondansetron 8 mg Oral Tablet,disintegrating - take 1 tablet ORAL route every 8 hours; 10 tablet; Refills: 0, Product sb4 Selection Permitted Signatures: Dispatcher [employer] Timothy Romero MD MD cha Lewis, Lynsay, RN RN ll1 Reema Anderson PA-C PA-C sb4 Bere Wilkinson RN RN cm10 Carmenza Ramirez RN kj2 Corrections: (The following items were deleted from the chart) 10:53 10:53 CBC+H.LAB.BRZ ordered. EDMS EDMS 10:53 10:53 COMPREHENSIVE METABOLIC PANEL+C.LAB.BRZ ordered. EDMS EDMS 10:53 10:53 LIPASE+C.LAB.BRZ ordered. EDMS EDMS 10:53 10:53 UA Rfx Joseph Cult if indicated+U.LAB.BRZ ordered. EDMS EDMS 10:53 10:53 Abdomen Pelvis W Con+CT.RAD.BRZ ordered. EDMS EDMS
--- NOTE | 2025-02-28 13:17 | ER ---
Nurse's Notes [facility] Name: Parul Rodriguez Age: 54 yrs Sex: Female : 1970 Arrival Date: 02/28/2025 Time: 09:56 Bed 13 Private MD: Diagnosis: Lower abdominal pain, unspecified;Presence of colovesicula fistula Presentation: 02/28 10:20 Chief complaint: Patient states: Abdominal pain for 2-3 days. N/V x 4 today. No fever. ll1 Has surgery scheduled for Mar.20 (colovaginal fistula repair). Coronavirus screen: Client denies travel out of the [place] in the last 14 days. At this time, the client does not indicate any symptoms associated with coronavirus-19. Ebola Screen: Patient denies travel to an Ebola-affected area in the 21 days before illness onset. Initial Sepsis Screen: Does the patient meet any 2 criteria? No. Patient's initial sepsis screen is negative. Does the patient have a suspected source of infection? No. Patient's initial sepsis screen is negative. Risk Assessment: Do you want to hurt yourself or someone else? Patient reports no desire to harm self or others. Onset of symptoms was February 26, 2025. 10:20 Method Of Arrival: Ambulatory [facility] 10:20 Acuity: YOVANI 3 [facility] Historical: - Allergies: 10:05 Dilaudid; Itching; ll1 - PMHx: 10:05 colo/vaginal fistula; Diverticulitis; ll1 - PSHx: 10:05 hysterectomy; Lumpectomy of breast; Tonsillectomy; 1 - Immunization history:: Adult Immunizations up to date. - Infectious Disease History:: Denies. - Social history:: Smoking status: Patient reports the use of cigarette tobacco products, smokes one-half pack cigarettes per day. Screenin:30 [facility] ED Fall Risk Assessment (Adult) History of falling in the last 3 months, cm10 including since admission No falls in past 3 months (0 pts) Confusion or Disorientation No (0 pts) Intoxicated or Sedated No (0 pts) Impaired Gait No (0 pts) Mobility Assist Device Used No (0 pt) Altered Elimination No (0 pt) Score/Fall Risk Level 0 - 2 = Low Risk Oriented to surroundings, Maintained a safe environment, Hourly rounding (assess needs \T\ fall precautionary measures) done. Abuse screen: Denies threats or abuse. Denies injuries from another. Nutritional screening: No deficits noted. Tuberculosis screening: No symptoms or risk factors identified. Assessment: 11:30 General: Appears in no apparent distress. uncomfortable, Behavior is calm, cooperative. cm10 Pain: Complains of pain in suprapubic area Pain currently is 8 out of 10 on a pain scale. Quality of pain is described as dull, sharp, Pain began 2-3 days ago. Neuro: No deficits noted. Level of Consciousness is awake, alert, obeys commands, Oriented to person, place, time, situation, Appropriate for age. Respiratory: No deficits noted. Airway is patent Respiratory effort is even, unlabored, Respiratory pattern is regular, symmetrical. GI: No deficits noted. Reports lower abdominal pain, nausea, vomiting. 12:05 GI: Bowel sounds present X 4 quads. Abd is non tender. kj2 12:30 Reassessment: Patient appears in no apparent distress at this time. Patient and/or kj2 family updated on plan of care and expected duration. Pain level reassessed. Patient is alert, oriented x 3, equal unlabored respirations, skin warm/dry/pink. 13:57 Reassessment: Patient appears in no apparent distress at this time. Patient and/or kj2 family updated on plan of care and expected duration. Pain level reassessed. Patient is alert, oriented x 3, equal unlabored respirations, skin warm/dry/pink. Vital Signs: 10:20 BP 130 / 69; Pulse 86; Resp 17; Temp 97.6; Pulse Ox 95% ; Weight 89.81 kg; Height 5 ft. ll1 5 in. ; Pain 7/10; 11:30 BP 136 / 93; Pulse 82; Resp 17; Pulse Ox 92% ; cm10 12:30 BP 132 / 90; Pulse 80; Resp 18; Temp 98; Pulse Ox 100% on R/A; kj2 13:57 BP 124 / 84; Pulse 82; Resp 18; Pulse Ox 100% on R/A; kj2 10:20 Body Mass Index 32.95 (89.81 kg, 165.1 cm) ll1 10:20 Pain Scale: Adult ll1 ED Course: 10:01 Patient arrived in ED. im 10:05 Arm band placed on. ll1 10:14 [facility] sb4 10:14 Timothy Wood MD is Attending Physician. sb4 10:22 Triage completed. ll1 11:01 Bere Wilkinson, RN is Primary Nurse. cm10 11:30 Patient has correct armband on for positive identification. Bed in low position. Call cm10 light in reach. Side rails up X 1. Pulse ox on. NIBP on. 11:37 CBC with Diff Sent. cm10 11:37 CMP Sent. cm10 11:37 Lipase Sent. cm10 11:37 UA Rfx Joseph Cult if indicated Sent. cm10 12:05 Provided Education on: call light. kj2 12:10 Report given to ANNE eHrr. cm10 12:27 CT Abd/Pelvis - IV Contrast Only In Process Unspecified. EDMS 13:56 Carmenza Ramirez, RN is Primary Nurse. kj2 13:58 No provider procedures requiring assistance completed. kj2 13:59 IV discontinued, intact, bleeding controlled, No redness/swelling at site. Pressure kj2 dressing applied. Administered Medications: 11:37 Drug: Ondansetron IVP 4 mg IVP once; over 2 minutes Route: IVP; Site: right upper arm; cm10 13:58 Follow up: Response: No adverse reaction kj2 11:37 Drug: NS 0.9% IV 1000 ml IV at 1 bolus Per protocol; to be given as a bolus over 60 cm10 minutes Route: IV; Rate: 1 bolus; Site: right upper arm; 13:58 Follow up: IV Status: Completed infusion; IV Intake: 1000ml kj2 11:37 Drug: fentaNYL (PF) IVP 50 mcg IVP once Route: IVP; Site: right upper arm; cm10 13:58 Follow up: Response: No adverse reaction kj2 Medication: 11:30 VIS not applicable for this client. cm10 Intake: 13:58 IV: 1000ml; Total: 1000ml. kj2 Outcome: 13:17 Discharge ordered by . sb4 13:59 Discharged to home ambulatory, kj2 13:59 Condition: stable 13:59 Discharge instructions given to patient, Instructed on discharge instructions, follow up and referral plans. Demonstrated understanding of instructions, follow-up care, 14:11 Patient left the ED. kj2 Signatures: Dispatcher [employer] Pastor Stahl, RN RN ll1 Reema Anderson PA-C PABernard sb4 Kassandra Head Clarissa, RN RN cm10 Carmenza Ramirez RN RN kj2
[2025-02-28 20:13] VITALS: TEMP 98; O2SAT 100
[2025-02-28 20:15] VITALS: BP 124/84
== END 2025-02-28 14:11 | disposition home or self-care (01) ==
LOC: ER 09:56
DX: R10.30 Lower abdominal pain, unspecified (principal); N32.1 Vesicointestinal fistula; F17.210 Nicotine dependence, cigarettes, uncomplicated; Z88.8 Allergy status to other drugs, medicaments and biological substances
CPT/HCPCS: 85025; 81001; 36415; 83690; 80053; 74177; Q9967; J3010; J2405; J7030; 96361; 96374; 96375; 99284